=== PATIENT | male | born 1960 | race Caucasian/White ===

== ENCOUNTER 2020-07-24 08:21 | Outpatient (REF) | payer BC, SELFPAY ==
[2020-07-24 09:40] LABS: Alanine Aminotransferase 47 U/L (0-40); Albumin Level 4.7 g/dL (3.5-5.0); Alkaline Phosphatase 103 U/L (39-117); Anion Gap 14 (12-20); Aspartate Amino Transferase 30 U/L (5-37); Bilirubin Total 0.6 mg/dL (0.0-1.0); Blood Urea Nitrogen 19 mg/dL (9-16); Calcium 9.5 mg/dL (8.4-10.2); Carbon Dioxide 28 mmol/L (22-29); Chloride 101 mmol/L (96-108); Estimated Glomerular Filt Rate 58; Glucose Random 112 mg/dL (60-115); Potassium 4.9 mmol/l (3.3-5.1); Sodium 138 mmol/L (135-145); Total Protein 7.4 g/dL (6.5-8.0)
== END 2020-07-24 08:22 | disposition home or self-care (01) ==
LOC: HO.LAB 08:21
PROVIDERS: PCP Physician Assistant; Visit Provider Physician Assistant
DX: I10 Essential (primary) hypertension (principal)
CPT/HCPCS: 36415; 80053

== ENCOUNTER 2020-07-26 09:47 | Outpatient (REF) | payer BC, SELFPAY ==
--- NOTE | 2020-07-26 09:50 | CT_ITS ---
EXAMINATION: CT CHEST WITH CONTRAST CLINICAL INFORMATION: Rule out pulmonary nodule, mass or tumor COMPARISON: None TECHNIQUE: Multidetector volumetric CT imaging of the chest was obtained after the administration of 65 mL of Omnipaque 350 intravenous contrast without immediate adverse reactions. Axial MIP volume rendering provided. Sagittal and coronal reformatted images were obtained. This CT examination was performed using dose optimization techniques as appropriate, variously including the following: *Automated exposure control *Adjustment of mA and/or kV according to patient size (this includes techniques or standardized protocols for targeted exams where dose is matched to indication/reason for exam; i.e. extremities or head) *Use of iterative reconstruction technique DLP: 188 mGy-cm FINDINGS: LUNGS: There is evidence of mild paraseptal emphysema. The lungs are clear. No pulmonary mass or nodule is seen. MEDIASTINUM: The visualized thyroid gland is unremarkable. There are no enlarged hilar or mediastinal lymph nodes. The heart does not appear enlarged. There is mild coronary artery calcification. There is no pericardial effusion. The thoracic aorta is normal in caliber. PLEURA: There is no pleural effusion. No pleural mass or thickening. AXILLA: No lymphadenopathy. UPPER ABDOMEN: There is fatty infiltration of the liver. OSSEOUS STRUCTURES: There are degenerative changes of the spine and shoulder joints. CT/CT chest w con IMPRESSION: Mild paraseptal emphysema. No pulmonary mass or nodule seen. Mild coronary artery calcification. Fatty liver.
[2020-07-26] MEDS: iohexoL 350 MG/ML 100 ML INFUS..BTL 65 ML IV (10:56)
== END 2020-07-26 09:48 | disposition home or self-care (01) ==
LOC: HO.CT 09:47
PROVIDERS: PCP Physician Assistant; Visit Provider Physician Assistant
DX: R91.8 Other nonspecific abnormal finding of lung field (principal)
CPT/HCPCS: 71260; Q9967

== ENCOUNTER 2020-09-16 07:25 | Outpatient (REF) | payer BC, SELFPAY ==
[2020-09-16 08:03] LABS: MANUAL DIFF FLAG NO
[2020-09-16 08:04] LABS: Basophils Absolute Auto 0.1 X10*3/uL (0.0-0.2); Eosinophils Absolute Auto 0.2 X10*3/uL (0.0-0.4); Eosinophils Percent Auto 3.7 % (0-4); Hematocrit 47.5 % (42-52); Hemoglobin 16.3 g/dl (14.0-18.0); Imm Gran Abs Auto 0.01 X10*3/uL (0.00-0.03); Imm Gran Pct Auto 0.2 % (0.0-0.4); Lymphocytes Absolute Auto 1.2 X10*3/uL (1.2-4.9); Lymphocytes Percent Auto 20.2 % (20-40); Mean Corpuscular HGB Conc 34.3 g/dl (31.0-36.0); Mean Corpuscular Hemoglobin 31.1 pg (27.0-33.0); Mean Corpuscular Volume 90.6 fL (80-98); Monocytes Absolute Auto 0.5 X10*3/uL (0.1-1.2); Monocytes Percent Auto 8.5 % (2-11); Neutrophils Percent Auto 66.4 % (45-73); Platelet Count 204 X10*3/uL (160-400); Red Blood Count 5.24 X10*6/uL (4.60-5.80); Red Cell Distribution Width 12.2 % (11.0-16.0)
[2020-09-16 09:23] LABS: Estimated Average Glucose 111 mg/dL; Hemoglobin A1c % 5.5 %
[2020-09-16 09:42] LABS: Alanine Aminotransferase 42 U/L (0-40); Albumin Level 4.5 g/dL (3.5-5.0); Alkaline Phosphatase 97 U/L (39-117); Anion Gap 11 (12-20); Aspartate Amino Transferase 29 U/L (5-37); Bilirubin Total 0.7 mg/dL (0.0-1.0); Blood Urea Nitrogen 22 mg/dL (9-16); Calcium 9.4 mg/dL (8.4-10.2); Carbon Dioxide 27 mmol/L (22-29); Chloride 106 mmol/L (96-108); Estimated Glomerular Filt Rate 53; Glucose Random 116 mg/dL (60-115); Potassium 4.5 mmol/L (3.3-5.1); Sodium 139 mmol/L (135-145); Total Protein 6.9 g/dL (6.5-8.0)
== END 2020-09-16 07:26 | disposition home or self-care (01) ==
LOC: HO.LAB 07:25
PROVIDERS: PCP Internal Medicine; Visit Provider Physician Assistant
DX: R94.4 Abnormal results of kidney function studies (principal); R73.01 Impaired fasting glucose
CPT/HCPCS: 36415; 80053; 83036; 85025

== ENCOUNTER 2021-05-06 09:10 | Outpatient (REF) | payer BC, SELFPAY | END 2021-05-06 09:11 | disposition home or self-care (01) | LOC: HO.LAB 09:10 | PROVIDERS: PCP Internal Medicine; Visit Provider Internal Medicine | DX: Z20.822 Contact with and (suspected) exposure to COVID-19 (principal) | CPT/HCPCS: C9803; U0003; U0005 ==

== ENCOUNTER 2021-05-18 09:51 | Outpatient (REF) | payer BC, SELFPAY | END 2021-05-18 09:52 | disposition home or self-care (01) | LOC: HO.MANLDS 09:51 | PROVIDERS: PCP Physician Assistant; Visit Provider Physician Assistant | DX: Z12.5 Encounter for screening for malignant neoplasm of prostate (principal); N40.0 Benign prostatic hyperplasia without lower urinary tract symptoms | CPT/HCPCS: 36415; 84153 ==

== ENCOUNTER 2022-03-24 15:00 | Outpatient (REF) | payer OTHER, SELFPAY ==
--- NOTE | 2022-03-24 | PFT_ITS ---
INDICATION: Dyspnea. SPIROMETRY: FEV1 to FVC of 68% with an FEV1 of 2.81 L which is 84% predicted and an FVC of 4.16 L, which is 92% predicted. Post bronchodilators, there was an improvement of the FEV1 by 13%. The maximum voluntary ventilation is 65% predicted. LUNG VOLUMES: Total lung capacity 95% predicted. DIFFUSION CAPACITY: DLCO 105% predicted. COMPARISONS: None. INTERPRETATION: There is an obstructive ventilatory defect consistent with mild COPD. There is also a significant response to bronchodilators noted. The patient also has mild to moderate decrease in maximum voluntary ventilation, which could be secondary to deconditioning. Lung volumes are within normal limits except for decrease in the expiratory reserve volume secondary to likely an elevated BMI. Diffusion capacity is within normal limits. Clinical correlation warranted. Misbah Burnett MD MR/MODL / [id number]
== END 2022-03-24 15:01 | disposition home or self-care (01) ==
LOC: HO.RESP 15:00
PROVIDERS: PCP Internal Medicine; Visit Provider Internal Medicine
DX: R06.09 Other forms of dyspnea (principal)
CPT/HCPCS: 94060; 94727; 94729

== ENCOUNTER → 2024-01-28 09:04 | Outpatient (REF) | payer OTHER, SELFPAY ==
--- NOTE | 2024-01-28 12:08 | ECG_ITS ---
Test Reason : NEW ONSET AFIB Blood Pressure : / mmHG Vent. Rate : 086 BPM Atrial Rate : 000 BPM P-R Int : 000 ms QRS Dur : 076 ms QT Int : 352 ms P-R-T Axes : 000 -03 013 degrees QTc Int : 421 ms Atrial fibrillation Abnormal ECG When compared with ECG of 21-JAN-2002 11:41, Atrial fibrillation has replaced Sinus rhythm Referred By: Ana Payne Electronically Signed By:Jules Madden
== END ==
LOC: HO.CARD 09:04
PROVIDERS: PCP Internal Medicine; Visit Provider Internal Medicine
DX: I48.91 Unspecified atrial fibrillation (principal); I25.10 Atherosclerotic heart disease of native coronary artery without angina pectoris
CPT/HCPCS: 93005; 93017

== ENCOUNTER → 2024-01-28 12:08 | Outpatient (BNV) | payer OTHER, SELFPAY | PROVIDERS: PCP Internal Medicine; Visit Provider Internal Medicine Cardiovascular Disease | DX: I48.91 Unspecified atrial fibrillation (principal); R94.31 Abnormal electrocardiogram [ECG] [EKG] | CPT/HCPCS: 93010 ==

== ENCOUNTER → 2024-03-05 08:01 | Outpatient (REF) | payer OTHER, SELFPAY ==
--- NOTE | 2024-03-05 08:04 | CA_ITS ---
Transthoracic Echocardiogram Patient (Last, First, Middle): Alexis Chacon W Gender: Male Date of : 1960 Age: 64 Procedure Date: 03/05/2024 Procedure Type: Transthoracic Echocardiogram Location: OP Height: 175.26 cm Weight: 96.16 kg BSA: 2.12 m2 Heart Rate: bpm BP: 120 / 80 mmHg Drying Can Worker: FERNANDO Referring MD: Jose Gibson MD Symptoms: I48.91 AFIB Study Quality: Fair, contrast ECG Rhythm: Atrial Fibrillation Conclusions: - The left ventricular systolic function is mildly decreased. The visually estimated ejection fraction is between 40-45%. - No obvious valvular pathology seen on this study. Findings Procedure Information Contrast agent, definity, is being given per protocol without apparent complications. Left Ventricle Normal left ventricular cavity size. There is normal left ventricular wall thickness. The left ventricular systolic function is mildly decreased. The visually estimated ejection fraction is between 40-45%. There is mild global hypokinesis. Diastolic function is indeterminate on the basis of available data. Right Ventricle Normal right ventricular cavity size. There is low normal right ventricular systolic function. Atria Both atria are normal in size. Aortic Valve There is a normal trileaflet aortic valve. There is mild thickening of the aortic valve. There is no aortic valve stenosis. There is no aortic valve regurgitation. Mitral Valve The mitral valve appears normal. There is mild mitral valve regurgitation. There is no mitral valve stenosis. Pulmonic Valve The pulmonic valve is likely normal. Tricuspid Valve Normal tricuspid valve structure. There is trace tricuspid valve regurgitation. There is no evidence of pulmonary hypertension. Great Vessels The asc aorta and aortic arch are normal in size. Venous The inferior vena cava is normal in size and collapses greater than 50% with inspiration. Pericardium/Pleural There is no evidence of pericardial effusion. Prior Study Comparison No prior study available for comparison. Recommendations, Care & Conclusions No obvious valvular pathology seen on this study. Measurements 2D Linear Measurements IVSd: 0.85 0.6-0.9/0.6-1.0 cm LVIDd: 3.40 3.9-5.3/4.2-5.9 cm LVIDd Index: 1.60 2.4-3.2/2.2-3.1 cm/m2 LVIDs: 2.84 2.0-3.6 cm LVPWd: 0.86 0.7-1.1 cm LA Diam: 3.80 2.7-3.8/3.0-4.0 cm LAIDs Index: 1.79 1.5-2.3 cm/m2 LV Mass: 97.49 67-162/88-224 g LV Mass Index: 45.98 43-95/49-115 g/m2 LVOT Diam: 2.20 3.0+(-)1.3 cm 2D Systolic Function EF 4C: 39.40 >55% EF 2C: 50.60 >55% EF BiP: 44.80 >55% Aortic Valve AoV Pk Yusef: 0.91 AoV Mn Yusef: 0.58 AoV VTI: 0.16 AoV Pk Grad: 3.00 Aov Mn Grad: 2.00 FRANK Cont.VTI: 3.40 LVOT LVOT Pk Yusef: 0.80 LVOT Mn Yusef: 0.54 LVOT VTI: 0.14 LVOT Pk Grad: 3.00 LVOT Mn Grad: 1.00 LVOT Diam: 2.20 LVOT Area: 3.80 Right Ventricle TAPSE (mm): 18.00 TVS' Yusef: 10.40 Tricuspid Valve TR Pk Yusef: 1.90 TR Pk Grad: 14.00 RA Press: 3.00 RVSP: 17.00 Great Vessels Aorta Sinus of Valsalva: 3.50 2.0-3.5 cm Ao Asc: 3.30 2.1-3.4 cm Ao Arch: 3.10 Updated in Other Vendor System with Status of Final David Harris MD electronically signed on 03/05/2024 12:26:20 PM with status of Final
== END ==
LOC: HO.CARD 08:01
PROVIDERS: PCP Internal Medicine; Visit Provider Internal Medicine
DX: I48.91 Unspecified atrial fibrillation (principal)
CPT/HCPCS: 93306; Q9957

== ENCOUNTER → 2024-03-05 08:04 | Outpatient (BNV) | payer OTHER, SELFPAY | PROVIDERS: PCP Internal Medicine; Visit Provider Internal Medicine | DX: I34.0 Nonrheumatic mitral (valve) insufficiency (principal) | CPT/HCPCS: 93306 ==

== ENCOUNTER → 2024-03-14 07:56 | Outpatient (REF) | payer OTHER, SELFPAY ==
--- NOTE | ~2024-03-14 | NM_ITS ---
Lexiscan Myocardial perfusion study Indication: Coronary artery disease Technique: The patient was brought in for a Lexiscan perfusion study on 03/14/2024 and was injected 0.4 mg of Lexiscan intravenously. Within a minute of this injection 35 mCi of sestamibi was given intravenously. Images were obtained using the SPECT gamma camera interlaced with the gating device. Images were obtained in supine position. Resting perfusion study was performed on 03/17/2024. Patient was administered 35 mCi of sestamibi intravenously at rest. Images were then obtained in supine position. Total DLP 104 mGy-cm. Images were processed with the software and compared side to side in short axis, horizontal long axis and vertical long axis views. Findings: Raw aquisition reviewed. The stress perfusion study showed diminished tracer uptake in the basal to mid part of inferior wall. There is improvement with CT attenuation correction suggestive of diaphragmatic attenuation artifact. The gated study shows normal LV systolic function with calculated LVEF of 52%. LV cavity is normal in size. The gated study shows reduced thickening and contractility in the basal to mid inferior wall. Resting study shows diminished tracer uptake in the basal to mid inferior wall. There is improvement with CT attenuation correction and can indicate diaphragmatic attenuation artifact. Gating at rest reveals diminished contractility in the basal to mid inferior wall with ejection fraction at 72%. The findings are consistent with fixed perfusion defect in the basal to mid inferior wall. Could be related to prior infarct or diaphragmatic attenuation artifact . No evidence of ischemia. NM/NM chapo perf SPECT rest & str Impression: 1. Myocardial perfusion imaging study shows no clear evidence of ischemia. Fixed basal to mid inferior defect which could either be from prior inferior infarct or from diaphragmatic attenuation artifact. 2. Gated LVEF is 52% during stress and 72% during rest. 3. Transient ischemic dilatation not present. EKG component of the test reported separately. Electronically signed by: David Harris MD 03/17/2024 04:34 PM EDT
--- NOTE | 2024-03-14 08:00 | CA_ITS ---
Acquisition Time: 2024-03-14 08:04:30 Total Exercise Time: 00:02:00 Test Indications: Abnormal ECG AFIB Medications: ALBUTEROL ASA ATORVASTATIN ELIQUIS LISINOPRIL METOPROLOL SINGULAIR Protocol: LEXISCAN Max HR: 122 BPM 79% of Pred: 154 BPM Max BP: 122/082 mmHG Max Work Load: 1.0 METS Pharmacogical stress test with Lexiscan injection while sitting, without anginal symptoms, with isolated PVCs, with normotensive response to injection, with reponded lightheadedness - patient put into laying postion, blood pressure taken, and aminophylline given at 2 min recovery, with nondiagnboisiitc EKGs. Aminophylline 75mg IVP given to reverse Lexiscan. Lightheadedness resolved post aminophylline. . Nuclear images pending. Test reviewed with Dr. Madden. Referred By: Deepthi Chance Overread By: Ana Payne
== END ==
LOC: HO.CARD 07:56
PROVIDERS: PCP Internal Medicine; Visit Provider Physician Assistant
DX: I48.91 Unspecified atrial fibrillation (principal)
CPT/HCPCS: 78452; 93017; A9500; J0280; J2785

== ENCOUNTER → 2024-03-14 08:00 | Outpatient (BNV) | payer OTHER, SELFPAY | PROVIDERS: PCP Internal Medicine; Visit Provider Nurse Practitioner | DX: I25.10 Atherosclerotic heart disease of native coronary artery without angina pectoris (principal) | CPT/HCPCS: 78452; 93016; 93018 ==

== ENCOUNTER 2024-05-24 08:04 | Outpatient (REF) | payer OTHER, SELFPAY ==
[2024-05-24 10:02] LABS: Alanine Aminotransferase 87 U/L (0-40); Albumin Level 4.1 g/dL (3.5-5.0); Alkaline Phosphatase 88 U/L (39-117); Anion Gap 11 (12-20); Aspartate Amino Transferase 48 U/L (5-37); Bilirubin Total 0.8 mg/dL (0.0-1.0); Blood Urea Nitrogen 16 mg/dL (9-16); Calcium 9.3 mg/dL (8.4-10.2); Carbon Dioxide 27 mmol/L (22-29); Chloride 106 mmol/L (96-108); Estimated Glomerular Filt Rate > 60; Glucose Random 118 mg/dL (60-115); Sodium 140 mmol/L (135-145); Total Protein 6.8 g/dL (6.5-8.0)
[2024-05-24 10:23] LABS: Thyroid Stimulating Hormone 2.05 uIU/mL (0.32-4.0)
== END 2024-05-24 08:05 | disposition home or self-care (01) ==
LOC: HO.LAB 08:04
PROVIDERS: PCP Internal Medicine; Visit Provider Internal Medicine
DX: R53.83 Other fatigue (principal)
CPT/HCPCS: 36415; 80053; 84443

== ENCOUNTER 2024-05-27 14:56 | Outpatient (REF) | payer OTHER, SELFPAY ==
--- NOTE | ~2024-05-27 | XR_ITS ---
EXAMINATION: XR CHEST CLINICAL INFORMATION: cough COMPARISON: CT chest from 07/26/2020 TECHNIQUE: 2 views of the chest were obtained. FINDINGS: No significant abnormality is noted involving the heart, lungs, mediastinum, bony thorax or soft tissues. XR/XR chest 2V IMPRESSION: Unremarkable examination. Electronically signed by: Nithin Coffey MD 05/27/2024 07:56 PM EST
== END 2024-05-27 14:57 | disposition home or self-care (01) ==
LOC: HO.XRAY 14:56
PROVIDERS: PCP Internal Medicine; Visit Provider Internal Medicine
DX: R05.9 Cough, unspecified (principal)
CPT/HCPCS: 71046

== ENCOUNTER 2025-06-15 16:17 | Outpatient (REF) | payer MEDICARE, SELFPAY ==
[2025-06-15 19:25] LABS: Thyroid Stimulating Hormone 2.19 uIU/mL (0.32-4.0)
[2025-06-15 19:43] LABS: Folate 6.9 ng/mL (> or = 4.0); Vitamin B12 1070 pg/mL (200-900)
--- OUTSIDE RECORDS SUMMARY | 2025-06-15 22:32 | XMS_ITS | Encounter Summary ---
Author Organization [facility] Address [address] [place] [address] Phone Care Team Providers Care Engineer First Assistant Name Role Phone Jose Gibson Primary Care Provider [phone] Encounter Details Date Type Department Care Team (Late st Contact Info) Description 07/31/2022 Procedure Pass [facility] Endoscopy Admitting Dept Virtual Department [address] [place] [address] Social History Tobacco Use Types Packs/Day Years Used Date Smoking Tobacco: Former Cigarettes Q uit: 2006 Smokeless Tobacco: Never Alcohol Use Standard Drinks/Week Comments Yes 4 (1 standard drink = 0.6 oz pur e alcohol) Intimate Partner Violence Answer Date R ecorded Are you denied basic needs s uch as food, clothing, or medical care? No 07/31/2022 In the past 12 months have y ou been in a relationship with a person who hurts, threatens, or tries to control you? No 07/31/2022 Are you denied basic needs s uch as food, clothing, or medical care? No 07/31/2022 In the past 12 months have y ou been in a relationship with a person who hurts, threatens, or tries to control you? No 07/31/2022 Sex and Gender Information Value Date Recorded Sex Assigned at Male 09/17/2020 10:46 PM EDT Legal Sex Male 9:51 PM EDT Gender Identity Male 09/17/2020 10:46 PM EDT Sexual Orientation Straight 09/17/2020 10 :46 PM EDT documented as of this encounter Plan of Treatment Not on file documented as of this encounter Visit Diagnoses Not on filedocumented in this encounter Care Teams Engineer First Assistant Relationship Specialty Start Date End Date Jose Gibson DO [email or web address] PCP - General Internal Medicine 05/21/17 documented as of this encounter Additional Source Comments The information contained in this document represents components of the legal health record. It is not the complete legal health record.[facility]
--- OUTSIDE RECORDS SUMMARY | 2025-06-15 22:32 | XMS_ITS | Encounter Summary ---
Author Organization [facility] Address [address] [place] [address] Phone Care Team Providers Care Restaurant Lead Name Role Phone Jose Gibson Primary Care Provider [phone] Encounter Details Date Type Department Care Team (Late st Contact Info) Description 09/05/2024 Procedure Pass [facility], Ct Scan - [facility] [address] [place] [address] Social History Tobacco Use Types Packs/Day Years Used Date Smoking Tobacco: Former Cigarettes 1.5 20 1 975 - 2007 Smokeless Tobacco: Never Comments:Quit cigarettes 199 5, then quit cigars 2006 Alcohol Use Standard Drinks/Week Comments Yes 4 (1 standard drink = 0.6 oz pur e alcohol) Education Answer Date Recorded Are you interested in more education? Not on kang e 10/27/2022 Are you concerned about learning? Not on file 10/27/2022 No 10/27/2022 No 10/27/2022 Digital Access Answer Date Recorded No 11/27/2022 No 11/27/2022 Reliable internet access at home? Not on file 11/27/2022 Device with a working camera? Not on file Intimate Partner Violence Answer Date R ecorded [...] on filedocumented in this encounter Care Teams Restaurant Lead Relationship Specialty Start Date End Date Jose Gibson DO [email or web address] PCP - General Internal Medicine 05/21/17 documented as of this encounter Additional Source Comments The information contained in this document represents components of the legal health record. It is not the complete legal health record.[facility]
--- OUTSIDE RECORDS SUMMARY | 2025-06-15 22:32 | XMS_ITS | Encounter Summary ---
Author Organization [facility] Address [address] [place] [phone] Phone Care Team Providers Care Sporting Goods Sales Associate Name Role Phone Jose Gibson Primary Care Provider [phone] JayeJose jules Unavailable Encounter Details Date Type Department Care Team (Late st Contact Info) Description 08/13/2017 Ancillary Orders [facility], X-Ray - [address] [address] Miracle Newman, PADMINI Linares. Dante. [address] [place] [address] [email or web address] Cough Social History Tobacco Use Types Packs/Day Years Used Date Smoking Tobacco: Never Smokeless Tobacco: Never Alcohol Use Standard Drinks/Week Comments Yes 4 (1 standard drink = 0.6 oz pur e alcohol) Sex and Gender Information Value Date Recorded Sex Assigned at Male 09/17/2020 10:46 PM EDT Legal Sex Male 9:51 PM EDT Gender Identity Male 09/17/2020 10:46 PM EDT Sexual Orientation Straight 09/17/2020 10 :46 PM EDT documented as of this encounter Plan of Treatment Not on file documented as of this encounter Results * XR CHEST PA AND LATERAL 2 VIEWS (08/13/2017 4:32 PM EST) Anatomical Region Laterality Modality Chest Radiographic Nasima ging 08/13/2017 4:37 PM EST Impressions 08/13/2017 4:38 PM EST No evidence of an acute chest process. POS - [id number] Narrative 08/13/2017 4:38 PM EST HISTORY: See above. COMPARISON: None FINDINGS: PA and lateral views of the chest are performed. Minor linear atelectasis or scarring in the lingula. No focal infiltrate, pleural effusion, or evidence of pulmonary edema. Heart and mediastinal contours are within normal limits. Aorta is mildly tortuous. No prominent compression deformities. Procedure Note Krystle Fatima MD - 08/13/2017 HISTORY: See above. COMPARISON: None FINDINGS: PA and lateral views of the chest are performed. Minor linear atelectasisor scarring in the lingula. No focal infiltrate, pleural effusion, orevidence of pulmonary edema. Heart and mediastinal contours are withinnormal limits. Aorta is mildly tortuous. No prominent compressiondeformities. IMPRESSION: No evidence of an acute chest process. POS - [id number] September Paty [facility] XR CHEST Final Result documented in this encounter Visit Diagnoses Diagnosis Cough Cough documented in this encounter Care Teams Sporting Goods Sales Associate Relationship Specialty Start Date End Date Jose Gibson DO PCP - General Internal Medicine 05/21/17 Jose Gibson DO [address] [place] [address] Insurance Assigned Provider 07/10/20 10/08/21 documented as of this encounter Additional Source Comments The information contained in this document represents components of the legal health record. It is not the complete legal health record.[facility]
--- OUTSIDE RECORDS SUMMARY | 2025-06-15 22:32 | XMS_ITS | Encounter Summary ---
Author Organization [facility] Address [address] [place] [phone] Phone Care Team Providers Care Internet Researcher Name Role Phone Jose Gibson DO Primary Care Provider [phone] Jose Gibson DO Unavailable Encounter Details Date Type Department Care Team (Late st Contact Info) Description 05/28/2017 Procedure Pass [facility] Endoscopy Admitting Dept Virtual Department [address] [place] [phone] Social History Tobacco Use Types Packs/Day Years [...] on filedocumented in this encounter Care Teams Internet Researcher Relationship Specialty Start Date End Date Jose Gibson DO PCP - General Internal Medicine 05/21/17 Jose Gibson DO [address] [place] [id number] [email or web address] Insurance Assigned Provider 07/10/20 10/08/21 documented as of this encounter Additional Source Comments The information contained in this document represents components of the legal health record. It is not the complete legal health record.[facility]
--- OUTSIDE RECORDS SUMMARY | 2025-06-15 22:32 | XMS_ITS | Clinical Summary ---
Author Organization [facility] Address [address] [place] [address] Phone Care Team Providers Care Nurse Informaticist Name Role Phone Marli Carranza Primary Care Provider [phone] Allergies Active Allergy Reactions Criticality Noted Date Comments Pollens Extract Other (See Comments) 05/16/2017 Congestion Medications aspirin 81 MG EC tablet Take 81 mg by mouth daily. Active montelukast (SINGULAIR) 10 mg tablet Take 10 mg by mouth nightly at bedtime. Active b complex vitamins capsule Take 1 capsule by mouth daily. Active albuterol 90 mcg/actuation inhaler Inhale 2 puffs into the lungs every 6 (six) hours as needed for wheezing. Active ipratropium (ATROVENT) 42 mcg (0.06 %) nasal spray 2 sprays by Nasal route 3 (three) times a day. 15 mL 12 5 Active Additional Information Patient not taking.Reported on 11/20/2024 atorvastatin (LIPITOR) 40 MG tablet Take 40 mg by mouth daily. Active rivaroxaban (XARELTO) 20 mg Tab Take 20 mg by mouth daily with dinner. Active dilTIAZem (CARDIZEM LA) 180 mg 24 hr tablet Take 180 mg by mouth daily. Active eucalyptus-pepp ermint oil (PONARIS) Soln 2 drops each nostril twice daily Active Active Problems Problem Noted Date Diagnosed Date Chronic cough 09/06/2024 Assessment & Plan (11/20/2024 3:07 PM EDT): Remarkably cough has resolved with change of medication of metoprolol and now on diltiazem. This despite bronchitic changes noted on chest CT. His lungs are clear no longer expectorating. If you develop recurrent symptoms, would suggest repeat PFTs. Otherwise at this time, no intervention or further testing required. Assessment & Plan (09/06/2024 2:00 PM EST): Over 6 months of chronic productive cough of purulent sputum with minimal additional symptoms. No clear improvement with prior antibiotics, even levofloxacin. Chest x-ray unremarkable though coronary CT in December may have predated his symptoms but did not include much of the lung windows. Presentation is most suggestive of lower airway cough syndrome, likely chronic bronchitis, bronchiectasis, or bronchiolitis. Concurrent upper airway source cannot be excluded. PLAN: Submit p.m. sputum sample for culture to rule out resistant bacteria. Obtain noncontrast chest CT to evaluate for possible bronchiectasis given negative chest x-ray Obtaine sinus CT as well to ensure no evidence of upper airway drainage contributing. Pending results, determine whether additional antibiotics are warranted versus consideration for airway evaluation with bronchoscopy. If the latter recommended, will contact patient to try to arrange prior to next scheduled follow-up visit. Chronic atrophic rhinitis 09/06/2024 Assessment & Plan (11/20/2024 3:07 PM EDT): Trial of multiple nasal steroids as well as ipratropium bromide and Azelastine have not improved his chronic rhinitis symptoms. On exam, features are very consistent with atrophic rhinitis, possibly related to his prior sinus surgery. I have recommended he start trial of Ponaris nasal drops twice daily. If ineffective, can try Xlear or nasal gel as alternatives. Assessment & Plan (09/06/2024 2:01 PM EST): Patient describes frequent post eating vasomotor rhinitis, AKA gustatory rhinitis. Recommend trial of as needed or scheduled ipratropium nasal spray. Immunizations Immunization Administration Dates Next Due COVID-19 (Pre-04/23) Pfizer Vaccine, mRNA, PF ,09/23/2020 Family History Medical History Relation Comments COPD Mother Relation Status Comments Mother Social History Tobacco Use Types Packs/Day Years Used Date Smoking Tobacco: Former Cigarettes 1.5 20 1 975 - 2006 Smokeless Tobacco: Never Tobacco Cessation:Counseling Given: Not Answered Comments:Quit cigarettes 1994, then quit cigars 2006 Alcohol Use Standard [...] Orientation Straight 09/17/2020 10 :46 PM EDT Last Filed Vital Signs Vital Sign Reading Time Taken Comments Blood Pressure 142/86 11/20/2024 2:34 PM EDT Pulse 93 11/20/2024 2:34 PM EDT Temperature 36.3 C (97.4 F) 11/20/2024 2:34 PM EDT Respiratory Rate 14 07/31/2022 8:24 AM EST Oxygen Saturation 97% 11/20/2024 2:34 PM EDT Inhaled Oxygen Concentration - - Weight 104.9 kg (231 lb 3.2 oz) 11/20/2024 2:34 PM EDT Height 175.3 cm (5' 9.02 ) 07/31/2022 7:10 AM ES T Body Mass Index 34.13 07/31/2022 7:10 AM EST Plan of Treatment Health Maintenance Due Date Last Done Comments Adult Td,Tdap Booster 1960 DEPRESSION SCREENING 1970 COLOGUARD 2003 FIT TEST 2003 FOBT 2003 SIGMOIDOSCOPY 2003 VIRTUAL COLONOSCOPY 2003 PNEUMOCOCCAL VACCINES (50+ years) (1 of 1 - PCV) 02/26/2008 ZOSTER VACCINES (1 of 2) 02/26/2008 CREATININE LEVEL 01/04/2020 01/03/2019 ABDOMINAL AORTIC ANEURYSM (AAA) SCREENING 2023 SCREENING FOR DIABETES 09/17/2023 09/16/2020, 2018 LIPID PANEL 01/04/2024 01/03/2019 INFLUENZA VACCINE (#1) 2025 , 04/05/2019, 05/11/2018, Additional history exists COVID-19 VACCINE ( season) 2025 04/26/2021, 10/16/2020, 09/23/2020 COLONOSCOPY 07/31/2032 07/31/2022, 05/28/2017 COLORECTAL CANCER SCREENING 07/31/2032 RSV VACCINE (1 - 1-dose 75+ series) 2033 HEPATITIS C SCREENING Completed 01/03/2019 SMOKING STATUS SCREENING (Once After 26 Yrs) Completed 11/20/2024 HEPATITIS A VACCINES Aged Out No long er eligible based on patient's age to complete this topic HIB VACCINES Aged Out No longer eligi ble based on patient's age to complete this topic MENINGOCOCCAL VACCINES (ACWY) Aged Out No longer eligible based on patient's age to complete this topic MENINGOCOCCAL VACCINES (B) Aged Out N o longer eligible based on patient's age to complete this topic Medical Devices Not on file Procedures Procedure Name Priority Date/Time Associated Diagnosis Comments ENDOSCOPY, COLON 07/31/2022 7:42 AM EST LIPID PANEL Routine 01/03/2019 7:42 AM EDT Hyperlipidemia, unspecified hyperlipidemia type HEPATITIS C ANTIBODY, QUALITATIVE Routine 01/03/2019 7:42 AM EDT Hyperlipidemia, unspecified hyperlipidemia type COMPREHENSIVE METABOLIC PANEL (CMP) Routine 01/03/2019 7:42 AM EDT Hyperlipidemia, unspecified hyperlipidemia type from Last 3 Months or Most Recently Relevant to Health Maintenance Results * ENDOSCOPY, COLON (07/31/2022 7:42 AM EST) Narrative Transcriptions Chuckie Curry MD - 07/31/2022 7:42 AM EST [facility] Patient Name: Alexis Guerradianelys Attending MD:: CHUCKIE CURRY MD Procedure Date: 07/31/2022 7:42 AM Date of : 1960 Age: 62 Admit Type: Outpatient Gender: Male Room: [place] [address] Referring MD: MARLI CARRANZA DO Exam Type: Colonoscopy Indications: Surveillance: Personal history of adenomatouspolyps on last colonoscopy > 5 years ago, Lastcolonoscopy: May 2017 Medications: Monitored Anesthesia Care Procedure: Informed consent was obtained from the patientafter discussion of the indications, limitations, alternatives, benefits, and risks of the procedure. Risks specifically discussed include but are not limited to medication reactions, missed lesions, bleeding, perforation, or the need for emergent surgery. Throughout the procedure, the patient's blood pressure, pulse, end-tidal CO2, and oxygensaturations were monitored continuously. The Olympus adult variable colonoscope CF-FC105E #5 was introduced through the anus and advanced to the terminal ileum, with identification of theappendiceal orifice and IC valve. The colonoscopy was performed without difficulty. The patient tolerated the procedure fairly well. The quality of the bowel preparation was good. The terminal ileum, ileocecal valve, appendiceal orifice, and rectum were photographed. Complications: No immediate complications. Estimated blood loss: Minimal. Findings: The perianal and digital rectal examinations were normal. Pertinent negatives include normalsphincter tone. A 5 mm polyp was found at 70 cm proximal to theanus. The polyp was sessile. The polyp was removed with a cold snare. Resection and retrieval were complete. Estimated blood loss was minimal. A 10 mm polyp was found in the proximal ascending colon. The polyp was flat. The polyp was removedwith a cold snare. Resection and retrieval werecomplete. Estimated blood loss was minimal. A 6 mm polyp was found at 80 cm proximal to theanus. The polyp was sessile. The polyp was removed with a cold snare. Resection and retrieval were complete. Estimated blood loss was minimal. Retroflexion in the right colon was performed. The exam was otherwise without abnormality ondirect and retroflexion views. Impression: - One 5 mm polyp at 70 cm proximal to the anus, removed with a cold snare. Resected andretrieved. - One 10 mm polyp in the proximal ascending colon, removed with a cold snare. Resected andretrieved. - One 6 mm polyp at 80 cm proximal to the anus, removed with a cold snare. Resected andretrieved. - The examination was otherwise normal on directand retroflexion views. Recommendation: - I will send results of your biopsy to you andyour referring physician or provider. If you do notreceive notification within 3 weeks, please call ouroffice. - Repeat colonoscopy in 3 - 5 years forsurveillance of multiple polyps. CHUCKIE CURRY MD 07/31/2022 8:04:53 AM This report has been signed electronically. Number of Addenda: 0 Note Initiated On: 07/31/2022 7:42 AM Procedure Code(s): --- Professional --- 09363, Colonoscopy, flexible; with removal of tumor(s), polyp(s), or other lesion(s) by snare technique --- Technical --- 92145, Colonoscopy, flexible; with removal of tumor(s), polyp(s), or other lesion(s) by snare technique Diagnosis Code(s): --- Professional --- Z86.010, Personal history of colonic polyps K63.5, Polyp of colon --- Technical --- Z86.010, Personal history of colonic polyps K63.5, Polyp of colon CPT copyright 2020 [employer]. All rights reserved. The codes documented in this report are preliminary and upon tax audit manager reviewmay be revised to meet current compliance requirements. Procedure Date: 07/31/2022 7:42:[address] [place] [id number] [place] Marli A Jayeda DO GI PROCEDURE ORDERABLES Final Re sult * (ABNORMAL) Comprehensive metabolic panel (01/03/2019 7:42 AM EDT) SODIUM 142 133 - 146 mmol/L [facility] POTASSIUM 4.7 3.3 - 5.1 mmol/L [facility] CHLORIDE 100 96 - 108 mmol/L [facility] CO2 27 21 - 35 mmol/L [facility] BUN 23(H) 6 - 19 mg/dL [facility] CREATININE 1.40 0.5 - 1.5 mg/dL [facility] GLUCOSE 99 70 - 99 mg/dL [facility] ALBUMIN 4.4 3.9 - 4.8 g/dL [facility] TOTAL PROTEIN 7.1 6.5 - 8.0 g/dL [facility] CALCIUM 9.3 8.4 - 10.3 mg/dL [facility] ALKALINE PHOSPHATASE 119(H) 39 - 117 U/L [facility] TOTAL BILIRUBIN 0.6 0.0 - 1.2 mg/dL [facility] AST 30 0 - 37 U/L [facility] ALT 36 0 - 40 U/L [facility] GLOBULIN 2.7 1 - 4.8 g/dL [facility] EGFR 54(L) >59 mL/min/1.7 3m2 [facility] Comment:If patient is black, multiply result by 1.159. Estimated glomerular filtration rate calculated using the CKD-EPI equation. ANION GAP 20 10 - 20 mmol/L [facility] Blood 01/03/2019 7:42 AM EDT 01/03/2019 7:49 AM EDT [facility]- LAB BLOOD BKR ORDERABLES Fin al Result Performing Organization Address City/[facility]/ZIP Co de Phone Number [address] [address] * Hepatitis C antibody, qualitative (01/03/2019 7:42 AM EDT) HCV Negative Negative [facility] Comment: This is a screening test and should be confirmed with molecular testing Blood 01/03/2019 7:42 AM EDT 01/03/2019 7:49 AM EDT [facility] LAB BLOOD BKR ORDERABLES Fin al Result Performing Organization Address [facility] Co de Phone Number [address] [address] * Lipid panel (01/03/2019 7:42 AM EDT) HDL 33 mg/dL [facility] Comment: Interpretation <40 mg/dL: Low HDL cholesterol (major risk factor for CHD) Greater than or equal to 60 mg/dL: High HDL cholesterol ( negative risk factor for CHD) HDL - cholesterol is affected by a number of factors, e.g. smoking, excerise, hormones, sex and age. CHOLESTEROL 154 0 - 240 mg/dL [facility] TRIGLYCERIDES 102 30 - 160 mg/dL [facility] LDL 101 50 - 129 mg/dL [facility] Comment: LDL levels in terms of risk for coronary heart disease: <100 mg/dL: Optimal 100-129 mg/dL: Near or above optimal 130-159 mg/dL: Borderline high 160-189 mg/dL: High >190 mg/dL: Very High CARDIAC RISK RATIO 4.7 3.4 - 5.0 [facility] Blood 01/03/2019 7:42 AM EDT 01/03/2019 7:49 AM EDT September Pat[facility] [place] LAB BLOOD BKR ORDERABLES [place] al Result [address] [address] from Last 3 Months or Most Recently Relevant to Health Maintenance [place] [id number] [employer] MEDEX SUPPLEMENT MEDICARE PART A & B [employer] MEDEX SUPPLEMENT MEDICARE PART A & B Member Subscriber Plan / Payer ( fective 2024-) Name:Alexis Chacon Member ID:[id number] Relation to Subscriber:Self Name:Alexis Chacon Subscriber ID:[id number] Payer ID:[id number] Group ID:Not on file Type:Medicare Address: [facility] [employer] [facility] [employer] [facility] [address] [place] [phone] [employer] MEDEX SUPPLEMENT MEDICARE PART A & B [employer] MEDEX SUPPLEMENT MEDICARE PART A & B [employer] MEDEX SUPPLEMENT MEDICARE PART A & B [employer] MEDEX SUPPLEMENT Care Teams Nurse Informaticist Relationship Specialty Start Date End Date Marli Carranza DO [phone] (work) [email or web address] PCP - General Internal Medicine 05/21/17 Additional Source Comments The information contained in this document represents components of the legal health record. It is not the complete legal health record.[facility]
--- OUTSIDE RECORDS SUMMARY | 2025-06-15 22:32 | XMS_ITS | Encounter Summary ---
Author Organization [facility] Address [address] [place] [address] Phone Care Team Providers Care Greeting Card Maker Name Role Phone Jose Gibson Primary Care Provider [phone] Encounter Details Date Type Department Care Team (Late st Contact Info) Description 09/05/2024 Procedure Pass [facility], Ct Scan - [facility] [address] [place] [address] Social History Tobacco Use Types Packs/Day Years [...] on filedocumented in this encounter Care Teams Greeting Card Maker Relationship Specialty Start Date End Date Jose Gibson DO [email or web address] PCP - General Internal Medicine 05/21/17 documented as of this encounter Additional Source Comments The information contained in this document represents components of the legal health record. It is not the complete legal health record.[facility]
--- OUTSIDE RECORDS SUMMARY | 2025-06-15 22:32 | XMS_ITS | Continuity of Care Document ---
Author Organization [facility], [facility] Address [address] [place] [address] Assessment Encounter Date Assessment Date Assessment LastModified by Organization Details LastModified Time 06/15/2025 06/15/2025 Patient presente d to office today for their Medicare Annual Wellness Visit. Education was provided on healthy nutrition, including a diet rich in fruits and vegetables, minimizing simple carbohydrates, salt, and saturated fats. Encouraged regular cardiovascular exercise such as walking at least 30 minutes daily, 5 times per week. Emphasized preventive health measures and educated pt on fall prevention and community-based lifestyle interventions to help reduce health risks and promote healthy living. [email or web address] Not available 06/01/2025 13:55:39 Plan of Treatment Reminders Order Date Submit Date Provider Last Modified By Organization Details Last Modified Time Details Appointments MEDICARE ANNUAL WELLNESS 2024 03:30P M DR CARRANZA Not available Not available Not available Lab TSH, serum or plasma 2024 025 [facility], [address] [place] [address], [place], [address], 06/15/2025 16:10:28 ESR (erythroc yte sedimenta tion rate), blood 2024 025 [facility], [address] [place] [address], [place], [address], 06/15/2025 16:10:29 vitamin B12 + folate, serum or blood 2024 025 [facility], [address] [place] [address], [place], [address], 06/15/2025 16:10:29 hemoglobi n, gastroint estinal, stool 2024 025 [facility], [address] [place] [address], [address], 06/15/2025 16:10:[address] referral - pending lab will be forwarded 2024 025 [email or web address] Baljinder Rehman MD, [address] [place] [address], [id number], 06/15/2025 16:26:51 Procedures None recorded. Surgeries None recorded. Imaging None recorded. Medication Orders None recorded. Patient TargetsNo targets recorded. Patient Instructions Encounter Date Encounter Id Patient Instructions Last Modified By Organization Details Last Modified Time 06/15/2025 [id number] pulse oximetry* Not available 06/15/2025 16:06:14 advance care planning: care instructions Not available 06/15/2025 16:06:14 Discussed and explained advance directives such as standard forms to the patient. Face to face discussion lasted for a duration of _35__ minutes. Not available 06/15/2025 16:06:25 Reason for Referral Neurologist Referral for Poo r short-term memory pending lab will be forwarded Referring Physician: Jose Carranza, Internal Medicine, Encounter Date: 06/15/2025 Results Created Date Observation Date Name Description Value Unit Range Abnormal Flag Note LastModifiedBy Organization Detail LastModifiedTime 06/15/2006/15/2025 pulse oxime try* Result 96 Not Available [facility] [address] [facility] [address], [place], [address], 06/01/2025 13:58:15 Result Notes None recorded. Problems Name Problem SNOMED Code Status Onset Date Resolution Date Notes Provider Name and Address Organization Details Recorded Time Tachycardi a 4667524 Active 2017 Not Available [facility] 09/28/202 3 13:33:26 Hypertensi ve disorder 06477287 Active 2017 Not Available [facility] 3 13:33:26 Impaired fasting glycemia 567681496 Active 2017 Not Available [facility] 3 13:33:26 Obstructiv e sleep apnea syndrome 13305079 Active 2017 TRU COLEMAN [address] [place], [address], [facility] 5 16:32:08 Hyperlipid emia 19419868 Active 2017 Not Available [facility] 3 13:33:26 Herpes simplex 65010611 Active 2018 HVS2 Not Available [facility] 3 13:33:26 Chronic obstructiv e pulmonary disease 86098345 Active 2019 Not Available [facility] 3 13:33:26 COVID-19 437356704 Active 2021 Not Available [facility] 3 13:33:26 Acute bronchitis 21573449 Active 2021 Not Available [facility] 3 13:33:25 Dyspnea on exertion 02790206 Active 2021 Not Available [facility] 3 13:33:26 Acute urinary tract infection 509275692 Active 2021 Not Available [facility] 3 13:33:26 Constipati on 48523101 Active 2021 Not Available [facility] 3 13:33:26 Cough 70528801 Active 2021 Not Available [facility] 3 13:33:26 Asthma 082567235 Active 2021 Not Available [facility] 3 13:33:26 Acute sinusitis 00849250 Active 2021 Not Available [facility] 3 13:33:26 Calcific coronary arterioscl erosis 34489619 Active 2023 Jose Carranza DO [address] [place], [address], [facility] 4 02:13:46 Atrial fibrillati on 44373970 Active 2023 TUR COLEMAN [address] [place], [address], [facility] 4 11:05:12 Fatigue 30759460 Active 2023 Jose Carranza, DO [address] [place], [address], [facility] 4 16:29:08 Chronic cough 17642394 Active 2023 Jose Carranza, DO [address] [place] [address], [address], [facility] 4 09:19:03 Aspiration pneumonia 003192855 Active 2024 Jose Carranza DO [address] [place] [address], [address], [facility] 5 16:37:20 Poor short-term memory 930354915 Active 2024 Jose Carranza, DO [address] [place] [address], [address], [facility] 5 16:03:49 Problem Notes None recorded. Procedures Surgical History Date Name Laterality Status Provider Name and Address Organization Details Recorded Time 7 Colonoscopy completed Katie Ramos [facility] 01/08/2019 08:13:25 Imaging Results None recorded. Procedure Notes None recorded. Medical Equipment None Reported. Allergies No known drug allergies Medications Name Sig Start Date Stop Date Status Note LastModified by Organization Details LastModified Time atorvasta tin 40 mg tablet TAKE 1 TABLET BY MOUTH EVERY DAY FOR 30 DAYS active Not Available Not Available No t Available atorvasta tin 80 mg tablet Take 1 tablet every day by oral route for 90 days. 08/06 completed Not Available Not Available Not Available prednison e 10 mg tablet TAKE 4 TABS DAILY X 2 DAYS, THEN 3 TABS X 1 DAY, THEN 2 TABS X1 DAY, THEN 1 TAB X1 DAY THEN STOP 02/09 completed Not Available Not Available Not Available doxycycli ne hyclate 100 mg capsule TAKE 1 CAPSULE BY MOUTH TWICE A DAY FOR 7 DAYS 09/14 completed Not Available Not Available Not Available azithromy essie 250 mg tablet TAKE 2 TABLETS BY MOUTH TODAY, THEN TAKE 1 TABLET DAILY FOR 4 DAYS DIRECTED 02/09 completed Not Available Not Available Not Available benzonata te 200 mg capsule TAKE 1 CAPSULE BY MOUTH THREE TIMES A DAY FOR 2 WEEKS 02/09 completed Not Available Not Available Not Available metoprolo l succinate ER 50 mg tablet,ex tended release 24 hr TAKE 1 TABLET BY MOUTH EVERY DAY FOR 30 DAYS 08/25 completed Not Available Not Available Not Available lisinopri l 20 mg tablet TAKE 1 TABLET BY MOUTH EVERY DAY active Not Available Not Available No t Available prednison e 20 mg tablet Take 1 tablet every day by oral route. 08/06 completed Not Available Not Available Not Available moxifloxa essie 400 mg tablet TAKE 1 TABLET BY MOUTH EVERY DAY FOR 10 DAYS 02/09 completed Not Available Not Available Not Available amlodipin e 5 mg tablet TAKE 1 TABLET BY MOUTH EVERY DAY FOR 30 DAYS 02/09 completed Not Available Not Available Not Available ciproflox acin 500 mg tablet TAKE 1 TABLET BY MOUTH EVERY 12 HOURS FOR 7 DAYS 03/31 completed Not Available Not Available Not Available triamcino lone acetonide 0.1 % topical cream APPLY THIN COAT TO AFFECTED AREA TWICE A DAY 03/31 completed Not Available Not Available Not Available simvastat in 40 mg tablet TAKE 1 TABLET BY MOUTH EVERY DAY 01/10 completed Not Available Not Available Not Available benzonata te 100 mg capsule TAKE 1 CAPSULE BY MOUTH THREE TIMES A DAY NEEDED FOR COUGH 04/05 completed Not Available Not Available Not Available Tobrex 0.3 % eye ointment APPLY A SMALL AMOUNT (1/2 INCH) TO THE LOWER LID OF THE AFFECTED EYE(S) BY OPHTHALM IC ROUTE 2 TIMES PER DAY 05/18 completed Not Available Not Available Not Available lisinopri l 30 mg tablet TAKE 1 TABLET BY MOUTH EVERY DAY 01/15 completed Not Available Not Available Not Available monteluka st 10 mg tablet TAKE 1 TABLET BY MOUTH EVERY DAY active Not Available Not Available No t Available codeine 10 mg-guaife nesin 100 mg/5 mL oral liquid TAKE 10 ML BY MOUTH EVERY 4 HOURS 03/31 completed Not Available Not Available Not Available metoprolo l succinate ER 25 mg tablet,ex tended release 24 hr TAKE 1 TABLET BY MOUTH EVERY DAY 08/06 completed Not Available Not Available Not Available levofloxa essie 500 mg tablet TAKE 1 TABLET BY MOUTH EVERY 24 HOURS FOR 7 DAYS 08/06 completed Not Available Not Available Not Available methylpre dnisolone 4 mg tablets in a dose pack TAKE 6 TABLETS ON DAY 1 DIRECTED ON PACKAGE AND DECREASE BY 1 TAB EACH DAY FOR A TOTAL OF 6 DAYS 08/06 completed Not Available Not Available Not Available albuterol sulfate HFA 90 mcg/actua tion aerosol inhaler TAKE 2 PUFFS INHALATI ON EVERY 4 HOURS NEEDED FOR WHEEZING , SHORTNES S OF BREATH OR COUGH active Not Available Not Available No t Available ipratropi um bromide 42 mcg (0.06 %) nasal spray USE 2 SPRAYS BY NASAL ROUTE 3 (THREE) TIMES A DAY 02/09 completed Not Available Not Available Not Available fluticaso ne propionat e 50 mcg/actua tion nasal spray,farrukh pension USE 2 SPRAYS IN EACH NOSTRIL ONCE A DAY 02/09 completed Not Available Not Available Not Available loratadin e 10 mg tablet TAKE 1 TABLET (ORAL) 1 TIME PER DAY FOR ALLERGY SYMPTOMS OR ITCHING 12/02 completed Not Available Not Available Not Available amoxicill in 875 mg-potass ium clavulana te 125 mg tablet TAKE 1 TABLET BY MOUTH EVERY 12 HOURS FOR 10 DAYS 07/13 completed Not Available Not Available Not Available ezetimibe 10 mg tablet TAKE 1 TABLET BY MOUTH EVERY DAY active Not Available Not Available No t Available diltiazem ER 180 mg tablet,ex tended release 24 hr TAKE 1 TABLET BY MOUTH EVERY DAY 06/15 completed Insuranc e will only cover capsule Not Available Not Available Not Available DILT-XR 180 mg capsule, extended release TAKE 1 CAPSULE BY MOUTH EVERY DAY active Not Available Not Available No t Available biotin qd 06/15 completed Not Available Not Available Not Available Aspir-81 Take one tablet once a day active Not Available Not Available No t Available Advil Take 2 tablets prn 01/08 completed Not Available Not Available Not Available Xyzal 5 mg tablet Take 1 tablet every day by oral route. 05/18 completed Not Available Not Available Not Available GaviLyte- G 236 gram-22.7 4 gram-6.74 gram-5.86 gram oral solution 11/27 completed Not Available Not Available Not Available Xarelto 20 mg tablet TAKE 1 TABLET BY MOUTH EVERY DAY WITH SUPPER active Not Available Not Available No t Available Eliquis 5 mg tablet TAKE 1 TABLET BY MOUTH TWICE A DAY 06/15 completed Not Available Not Available Not Available xylitol One tablet once a day 07/15 completed Not Available Not Available Not Available Fluzone Quad (PF) 60 mcg (15 mcg x 4)/0.5 mL IM syringe ADM 0.5ML IM UTD 09/14 completed Not Available Not Available Not Available BinaxNOW COVID-19 Ag Self Test kit TEST DIRECTED TODAY 12/02 completed Not Available Not Available Not Available Paxlovid 300 mg (150 mg x 2)-100 mg tablets in a dose pack TAKE 3 TABLETS BY MOUTH TWICE A DAY FOR 5 DAYS.GLENDA E DIRECTED ON PACKAGE 02/17 completed Not Available Not Available Not Available Vitals Date Recorded Body height Body mass index (BMI) Body weight Heart rate Oxygen saturation Systolic And Diastolic Provider Name and Address Organization Details Last Updated DateTime 5 175.26 cm 34.9 kg/m2 278032. 24 g 56 /min 97 % 110/62 mm[Hg] [facility] 15:39:30 Social History Question Answer Notes LastModified by Organizat ion Details LastModified Time Tobacco Smoking Status Former Smoker Not Available [facility] 05/04/2020 03:36:23 What Was The Date Of Your Most Recent Tobacco Screening? 06/15/2025 [email or web address] Information not available 06/15/2025 How Many Years Have You Smoked Tobacco? 35 [id number] Information not available 05/04/2020 Sex: Male Functional Status Question Answer Note LastModified by Organization D etails LastModified Time Do you or have you ever used any other forms of tobacco or nicotine? No [email or web address] Information not available 01/30/2024 Mental Status None recorded. Family History Relationship Description Onset Age of this Age Resolved Age Notes LastModified by Organization Details LastModified Time Mother Chronic obstructive pulmonary disease [email or web address] Not available 2024 15:33:56 Mother Irritable bowel syndrome [email or web address] Not available 2018 08:15:50 Father Family history of malignant neoplasm deceas ed [email or web address] Not available 06/15/2025 15:33:56 Father Snoring [email or web address] Not available 06/15/2025 15:33:56 Daughter Gastroesopha geal reflux disease [email or web address] Not available 2024 15:33:56 Medical History No medical history recorded. Immunizations Vaccine Type Date Status Note Provider Nam e and Address Organization Details Recorded Time COVID-19, mRNA, LNP-S, PF, 30 mcg/0.3 mL dose [facility] 05/11/2021 10:49:05 COVID-19, mRNA, LNP-S, PF, 30 mcg/0.3 mL dose 1 completed Jeanne jimenez [facility] 05/11/2021 10:49:13 COVID-19, mRNA, LNP-S, PF, 30 mcg/0.3 mL dose 1 completed Jeanne Magana [facility] 05/11/2021 10:49:21 influenza, unspecified formulation 3 completed Davida Mina [facility] 03/30/2023 08:38:22 Respiratory syncytial virus (RSV) MAB, unspecified 4 completed Gayatri Esteves [facility] 04/04/2024 08:48:21 influenza, unspecified formulation 4 completed Adam Carranza [facility] 06/29/2024 09:48:51 influenza, unspecified formulation 5 completed Jose Carranza DO [address] [place] [address], [address], [facility] 06/15/2025 15:54:13 Tdap 5 completed Jose Carranza DO [address] [place] [address], [address], [facility] 06/15/2025 15:54:54 Influenza, split virus, quadrivalent, preservative 9 [facility] 04/06/2019 15:29:04 Influenza, split virus, quadrivalent, preservative 0 completed Jose Carranza DO [address] [place], [address], [facility] 03/29/2020 12:04:20 Past Encounters Encounter ID Performer Location Encounter Start Date Encounter Closed Date Diagnosis/Indication Diagnosis SNOMED-CT Code Diagnosis ICD10 Code Diagnosis IMO Codes Diagnosis Note [id number] Jose Carranza DO [facility] [address] [facility],[place] [address] 06/15/2025 15:33:31 06/15/2025 16:26:51 Screening for cardiovascular system disease 435939247 Z13.6 LDL 97 this year per cardiol Screening for malignant neoplasm of colon 670736411 Z12.11 Depression screening 171 083206 Z13.31 PHQ9 NEGATIVE Atrial fibrillation 4943 6004 I48.91 did great after the ablationdo ing good overall Hyperlipidemia 04335694 E78.5 next lab draw Asthma 192506573 J45.90 9 stable doing ok until now he will treat conserv Chronic ob structive pulmonary disease 59146265 J41.8 discussed use of meds like flovent Preventive procedure 169 015106 Z00.00 71020515 overall he is doing well and is not having any major issues Poor short -term memory 894843596 R41.3 311142 Health Concerns Section Related Observation LastModified by Organization Detai ls LastModified Time None Recorded Concern Status LastModified by Organization Details LastModified Time None Recorded Payers Encounter Date Sequence Insurance Name Policy Number Policy Denson Covered Member ID Denson Member ID Guarantor Name 06/15/2025 2 [place] [id number] Alexis Chacon [id number] Alexis Chacon 06/15/2025 1 [place] [employer] [place] Alexis Chacon [id number] Alexis Chacon Notes Date Note Type Note Provider Name and Address Organization Details Recorded Time 025 text/ht ml Care Management - Atrial FibrillationReported by PatientCare ManagementFor medications, patient reportscompliant with medication. For prior imaging, patient reportsechocardiogramandrecent ecg.Interim HistoryFor associated symptoms, patient reportsno dizziness,no chest pain,no easy bruisability, andno rapid heart rate. Care Management - AsthmaReported by PatientHPIFor severity, patient reportsimproving,does not interfere with daily activities,does not disturb sleep, anddoes not cause nighttime awakening. For associated symptoms, patient reportsno fever,no fatigue,no irritability,no cough,normal appetite, andno change in productivity. Care Management - HyperlipidemiaReported by PatientHPIFor control, patient reportsusually well controlled,improving, andat goal. For complications, patient reportsno coronary artery disease,no heart attack,no cardiovascular disease,no pancreatitis, andno stroke. Medicare Annual Wellness VisitReported by PatientSocial/Behavioral HistoryFor diet and nutrition, patient reportshealthy diet. For fracture risk, patient reportsno history of fractures,no recent explained fracture,no sudden unexplained fractures, andno previous musculoskeletal injuries. For physical activity, patient reportsexercises on a regular basis,recent increase in physical activity, andgood physical condition.Mental Status:For depression risk, patient reportsnever feels sad, empty, or tearful,no loss of interest in activities,no significant changes in weight,no sleep disturbances or insomnia,no agitation,no loss of energy,no feelings of worthlessness or guilt,no thoughts of suicide,no history of depression, andno history of mood disorders. For orientation, patient reportsno disorientation to time,no disorientation to date, andno disorientation to place. For concentration and memory, patient reportsno decreased concentrating ability,no memory lapses or loss, anddoes not forget words. For speech/motor difficulties, patient reportsno speech difficulties,no difficulty expressing formulated concepts,no difficulty with fine manipulative tasks,no difficulty writing/copying,no slowed reaction time, anddoes not knock things over when trying to pick them up.Functional AbilityFor hearing, patient reportsno loss of hearing. For vision, patient reportsno vision problems. For activities of daily living, patient reportsable to bathe with limited or no assistance,able to contol urination and bowels,able to dress with limited or no assistance,able to feed self with limited or no assistance,able to get out of chair or bed with limited or no assistance,able to groom with limited or no assistance, andable to toilet with limited or no assistance. For instrumental activities of daily living, patient reportsable to do house work with limited or no assistance,able to grocery shop with limited or no assistance,able to manage medications with limited or no assistance,able to manage money with limited or no assistance,able to prepare meals with limited or no assistance, andable to use the phone with limited or no assistance. For falls risk assessment, patient reportsno frequent falls while walking,no fall in the past year,no fall since last visit, andno dizziness/vertigo. For home safety, patient reportsno unsafe mckenzie hazzards,no unsafe stairs,no unsafe gas appliances,working smoke/co detectors,wears protective head gear for biking/high velocity,use of seatbelts,practicing 'safer sex',no vision or hearing loss while driving,no fire arms,has hand bars in the bathroom/shower, andgood lighting in the home.ROS as noted in the HPI here for mwv relates Jose Carranza, DO [address] [facility], [place], [address], [facility] 06/15/2025 16:14:24
--- OUTSIDE RECORDS SUMMARY | 2025-06-15 22:32 | XMS_ITS | Encounter Summary ---
Author Organization [facility] Address [address] [place] [address] Phone Care Team Providers Care V Belt Finisher Name Role Phone Jose Gibson DO Primary Care Provider [phone] JayeJose jules DO Unavailable Encounter Details Date Type Department Care Team (Latest Contact Info) Description 01/03/2019 Transcribe Orders [facility] [address] [address] Miracle Newman, PADMINI [address] Linares. [address] [place] [address] [email or web address] Hyperlipidemia, unspecified hyperlipidemia type (Primary Dx) Social History Tobacco Use Types Packs/Day Years [...] documented as of this encounter Results * PSA (screening) (01/03/2019 7:42 AM EDT) PSA 0.48 0 - 4.00 ng/mL [facility] Blood 01/03/2019 7:42 AM EDT 01/03/2019 7:[address] [facility] PA- LAB BLOOD BKR ORDERABLES Fin al Result Performing Organization Address [facility] Co de Phone Number [address] [address] * Hepatitis C antibody, qualitative (01/03/2019 7:42 AM EDT) HCV Negative Negative [facility] Comment: This is a screening test and should be confirmed with molecular testing Blood 01/03/2019 7:42 AM EDT 01/03/2019 7:49 AM EDT [facility] LAB BLOOD BKR ORDERABLES Fin al Result Performing Organization Address [facility] de Phone Number [address] [address] * Hemoglobin A1c (01/03/2019 7:42 AM EDT) HEMOGLOBIN A1C 5.7 4.3 - 5.8 % [facility] Blood 01/03/2019 7:42 AM EDT 01/03/2019 7:49 AM EDT [facility] LAB BLOOD BKR ORDERABLES Fin al Result Performing Organization Address [facility] de Phone Number [address] [address] * Lipid panel (01/03/2019 7:42 AM EDT) HDL 33 mg/dL [facility] Comment: Interpretation <40 mg/dL: Low HDL cholesterol (major risk factor for CHD) Greater than or equal to 60 mg/dL: High HDL cholesterol ( negative risk factor for CHD) HDL - cholesterol is affected by a number of factors, e.g. smoking, excerise, hormones, sex and age. CHOLESTEROL 154 0 - 240 mg/dL [facility] TRIGLYCERIDES 102 30 - 160 mg/dL [facility] LDL 101 50 - 129 mg/dL [facility] Comment: LDL levels in terms of risk for coronary heart disease: <100 mg/dL: Optimal 100-129 mg/dL: Near or above optimal 130-159 mg/dL: Borderline high 160-189 mg/dL: High >190 mg/dL: Very High CARDIAC RISK RATIO 4.7 3.4 - 5.0 [facility] Blood 01/03/2019 7:42 AM EDT 01/03/2019 7:49 AM EDT us September Paty [place] LAB BLOOD BKR ORDERABLES Fin al Result [facility] [address] [place] [address] * (ABNORMAL) Comprehensive metabolic panel (01/03/2019 7:42 AM EDT) SODIUM 142 133 - 146 mmol/L [facility] POTASSIUM 4.7 3.3 - 5.1 mmol/L [facility] CHLORIDE 100 96 - 108 mmol/L [facility] CO2 27 21 - 35 mmol/L [facility] BUN 23(H) 6 - 19 mg/dL [facility] CREATININE 1.40 0.5 - 1.5 mg/dL [facility] GLUCOSE 99 70 - 99 mg/dL [facility] ALBUMIN 4.4 3.9 - 4.8 g/dL [facility] TOTAL PROTEIN 7.1 6.5 - 8.0 g/dL [facility] CALCIUM 9.3 8.4 - 10.3 mg/dL [facility] ALKALINE PHOSPHATASE 119(H) 39 - 117 U/L [facility] TOTAL BILIRUBIN 0.6 0.0 - 1.2 mg/dL [facility] AST 30 0 - 37 U/L [facility] ALT 36 0 - 40 U/L [facility] GLOBULIN 2.7 1 - 4.8 g/dL [facility] EGFR 54(L) >59 mL/min/1.7 3m2 [facility] Comment:If patient is black, multiply result by 1.159. Estimated glomerular filtration rate calculated using the CKD-EPI equation. ANION GAP 20 10 - 20 mmol/L [facility] Blood 01/03/2019 7:42 AM EDT 01/03/2019 7:49 AM EDT September Paty [facility] LAB BLOOD BKR ORDERABLES Fin al Result [facility] [address] [place] [address] documented in this encounter Visit Diagnoses Diagnosis Hyperlipidemia, unspecified hyperlipidemia type- Primary documented in this encounter Care Teams V Belt Finisher Relationship Specialty Start Date End Date Jose Gibson DO PCP - General Internal Medicine 05/21/17 Jose Gibson DO [address] [place] [id number] Insurance Assigned Provider 07/10/20 10/08/21 documented as of this encounter Additional Source Comments The information contained in this document represents components of the legal health record. It is not the complete legal health record.[facility]
--- OUTSIDE RECORDS SUMMARY | 2025-06-15 22:33 | XMS_ITS | Data Portability ---
Author Organization [facility], Telehealth Patient Home Address [address] [place] [address] Assessment Encounter Date Assessment Date Assessment LastModified by Organization Details LastModified Time 06/02/2024 06/02/2024 [id number] [place] [id number] (STEELER) MDM MODERATE MUST MEET 2 OUT OF 3 ELEMENTS: PROBLEMS, DATA OR RISK ELEMENT 1: PROBLEMS ADDRESSED 1 OR MORE CHRONIC ILLNESS WITH EXACERBATION OR 2 OR MORE STABLE CHRONIC ILLNESSES OR 1 UNDIAGNOSED NEW PROBLEM OR 1 ACUTE ILLNESS W/SYMPTOMS OR 1 ACUTE COMPLICATED INJURY ELEMENT 2: DATA MUST MEET 1 OF 3 CATEGORIES CATEGORY 1: REVIEW OF PRIOR EXTERNAL NOTES, REVIEW OF RESULTS, ORDERING OF EACH TEST, ASSESSMENT REQUIRING INDEPENDENT HISTORIAN OR CATEGORY 2: INDEPENDENT INTERPRETATION OF TESTS BY ANOTHER PHYSICIAN OR SPECIALIST OR CATEGORY 3: DISCUSSION OF MGT OR TEST INTERPRETATION W/EXTERNAL PHYSICIAN OR SPECIALIST ELEMENT 3: RISK RISK OF COMPLICATIONS AND/OR MORBIDITY OR MORTALITY OF PATIENT MANAGEMENT PROVIDER MUST THOROUGHLY DOCUMENT EACH ELEMENT THAT IS COVERED Not available 06/02/2024 16:55:35 06/27/2024 06/27/2024 [id number] [place] [id number] (STEELER) MDM MODERATE MUST MEET 2 OUT OF 3 ELEMENTS: PROBLEMS, DATA OR RISK ELEMENT 1: PROBLEMS ADDRESSED 1 OR MORE CHRONIC ILLNESS WITH EXACERBATION OR 2 OR MORE STABLE CHRONIC ILLNESSES OR 1 UNDIAGNOSED NEW PROBLEM OR 1 ACUTE ILLNESS W/SYMPTOMS OR 1 ACUTE COMPLICATED INJURY ELEMENT 2: DATA MUST MEET 1 OF 3 CATEGORIES CATEGORY 1: REVIEW OF PRIOR EXTERNAL NOTES, REVIEW OF RESULTS, ORDERING OF EACH TEST, ASSESSMENT REQUIRING INDEPENDENT HISTORIAN OR CATEGORY 2: INDEPENDENT INTERPRETATION OF TESTS BY ANOTHER PHYSICIAN OR SPECIALIST OR CATEGORY 3: DISCUSSION OF MGT OR TEST INTERPRETATION W/EXTERNAL PHYSICIAN OR SPECIALIST ELEMENT 3: RISK RISK OF COMPLICATIONS AND/OR MORBIDITY OR MORTALITY OF PATIENT MANAGEMENT PROVIDER MUST THOROUGHLY DOCUMENT EACH ELEMENT THAT IS COVERED Not available 06/27/2024 09:18:56 08/06/2024 08/06/2024 [id number] [place] [id number] (STEELER) MDM HIGH MUST MEET 2 OUT OF 3 ELEMENTS: PROBLEMS, DATA OR RISK ELEMENT 1: PROBLEMS 1 OR MORE CHRONIC ILLNESS W/SEVERE EXACERBATION, PROGRESSION MAY REQUIRE HOSPITAL LEVEL CARE OR 1 ACUTE OR CHRONIC ILLNESS OR INJURY THAT POSES A THREAT TO LIFE OR BODILY FUNCTION ELEMENT 2: DATA: MUST MEET 2 OF 3 CATEGORIES CATEGORY 1 REVIEW OF PRIOR EXTERNAL NOTES REVIEW OF THE RESULTS ORDERING OF EACH TEST ASSESSMENT REQUIRING INDEPENDENT HISTORIAN(S) CATEGORY 2: INDEPENDENT INTERPRETATION OF TESTS BY ANOTHER PROVIDER/SPECIALI ST CATEGORY 3: DISCUSSION OF MGT OR TEST INTERPRETATION W/EXTERNAL PHYSICIAN/SPECIAL IST ELEMENT 3: RISK HIGH RISK OF MORBIDITY FROM ADDITIONAL DIAGNOSTIC TESTING OR TREATMENT PROVIDER MUST THOROUGHLY DOCUMENT EACH ELEMENT THAT IS COVERED . Not available 08/06/2024 16:41:05 02/09/2025 02/09/2025 [id number] [place] [id number] (STEELER) MDM MODERATE MUST MEET 2 OUT OF 3 ELEMENTS: PROBLEMS, DATA OR RISK ELEMENT 1: PROBLEMS ADDRESSED 1 OR MORE CHRONIC ILLNESS WITH EXACERBATION OR 2 OR MORE STABLE CHRONIC ILLNESSES OR 1 UNDIAGNOSED NEW PROBLEM OR 1 ACUTE ILLNESS W/SYMPTOMS OR 1 ACUTE COMPLICATED INJURY ELEMENT 2: DATA MUST MEET 1 OF 3 CATEGORIES CATEGORY 1: REVIEW OF PRIOR EXTERNAL NOTES, REVIEW OF RESULTS, ORDERING OF EACH TEST, ASSESSMENT REQUIRING INDEPENDENT HISTORIAN OR CATEGORY 2: INDEPENDENT INTERPRETATION OF TESTS BY ANOTHER PHYSICIAN OR SPECIALIST OR CATEGORY 3: DISCUSSION OF MGT OR TEST INTERPRETATION W/EXTERNAL PHYSICIAN OR SPECIALIST ELEMENT 3: RISK RISK OF COMPLICATIONS AND/OR MORBIDITY OR MORTALITY OF PATIENT MANAGEMENT PROVIDER MUST THOROUGHLY DOCUMENT EACH ELEMENT THAT IS COVERED Not available 02/09/2025 16:14:55 06/15/2025 06/15/2025 Patient presente d to office [...] available Lab TSH, serum or plasma 2024 [facility], [address] [place] [address], [id number], 06/15/2025 16:10:28 ESR (erythroc yte sedimenta tion rate), blood 2024 [facility], [address] [place] [address], [address], 06/15/2025 16:10:29 vitamin B12 + folate, serum or blood 2024 025 [facility], [address] [place] [address], [id number], 06/15/2025 16:10:29 hemoglobi n, gastroint estinal, stool 2024 025 [facility], [address] [place] [address], [address], 06/15/2025 16:10:28 CMP, serum or plasma 2023 024 [facility], [address] [place] [address], [address], 06/02/2024 17:01:48 CBC 2023 [facility], [address] [place] [address], [address], 06/02/2024 17:01:47 PSA, serum or plasma 2023 [facility], [address] [place] [address], [address], 06/02/2024 17:01:47 lipid panel, serum 2023 024 [facility], [address] [facility], [place], [address], 06/02/2024 17:01:[address] referral - pending lab will be forwarded 2024 025 [email or web address] Baljinder Rehman MD, [address] [place] [address], [address], 06/15/2025 16:26:51 [email or web address] gist referral - please note pt has had cough for 3months following an RSV vaccine he has undergone workup and various treatment without relief. wondering if the rsv had some type of reaction on him vs laryngeal reflux vs cough variant asthma?? he does have a distant hx of smoking and a PFT from 2021 showed mild copd. thank you for your time . mb 2023 024 [email or web address] Vargas MD, [address] [place] [address], [address], 07/04/2024 09:35:01 Procedures None recorded. Surgeries None recorded. Imaging XR, chest, 2 view 2024 025 [facility], [address] [place], [address], 08/18/2024 14:28:53 Medication Orders moxifloxa essie 400 mg tablet 2024 025 [facility]acy #2024, [address] [place], [address], 02/09/2025 15:50:22 benzonata te 200 mg capsule 2023 025 [email or web address] [facility] #2024, [address] [place], [address], 02/09/2025 15:49:00 atorvasta tin 40 mg tablet 2023 025 [email or web address] [facility]acy #2024, [address] [place], [address], 05/22/2025 15:20:41 metoprolo l succinate ER 50 mg tablet,ex tended release 24 hr 2023 024 [facility], [address] [place], [address], 08/25/2024 14:01:17 Patient TargetsNo targets recorded. Patient Instructions Encounter Date Encounter Id Patient Instructions Last Modified By Organization Details Last Modified Time 06/02/2024 [id number] pulse oximetry* Not available 06/02/2024 16:56:30 06/27/2024 [id number] chronic cough: care instructions Not available 06/27/2024 09:20:40 08/06/2024 [id number] prediabetes: car e instructions Not available 08/06/2024 16:41:10 pulse oximetry* Not available 08/06/2024 16:41:10 aspiration pneumonia: care instructions Not available 08/06/2024 16:41:10 atrial fibrillation: care instructions Not available 08/06/2024 16:41:10 chronic obstructive pulmonary disease (COPD): care instructions Not available 08/06/2024 16:41:09 learning about copd and how to prevent lung infections Not available 08/06/2024 16:41:10 02/09/2025 [id number] pulse oximetry* Not available 02/09/2025 16:15:37 06/15/2025 [id number] pulse oximetry* Not available 06/15/2025 16:06:14 advance care planning: care instructions Not available 06/15/2025 16:06:14 Discussed and explained advance directives such as standard forms to the patient. Face to face discussion lasted for a duration of _35__ minutes. 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 wondering if the rsv had some type of reaction on him vs laryngeal reflux vs cough variant asthma?? he does have a distant hx of smoking and a PFT from 2021 showed mild copd. thank you for your time . george Referring Physician: Jose Carranza, Internal Medicine, Encounter Date: 06/27/2024 Neurologist Referral for Poo r short-term memory pending lab will be forwarded Referring Physician: Jose Carranza, Internal Medicine, Encounter Date: 06/15/2025 Results Created Date Observation Date Name Description Value Unit Range Abnormal Flag Note LastModifiedBy Organization Detail LastModifiedTime 06/02/20 24 06/02/2024 pulse oxime try* Result 97% Not Available [facility] [address] [place] [address], [place], [address], 05/28/2024 10:33:02 08/06/19 25 08/06/2024 pulse oxime try* Result 98% Not Available [facility] [address] [place] [address], [place], [address], 08/05/2024 09:10:54 02/10/20 25 02/09/2025 pulse oxime try* Result 98 Not Available [facility] [address], [place], [address], 01/27/2025 10:44:16 06/15/20 25 06/15/2025 pulse oxime try* Result 96 Not Available [facility] [address], [place], [address], 06/01/2025 13:58:15 05/27/20 24 05/27/2024 XR, chest , 2 view No observ ation record ed. jbda [facility] (Medical Records) [address] [facility], [place], [address], 05/28/2024 06:50:06 08/18/19 25 08/18/2024 XR, chest , 2 view No observ ation record ed. [facility] [address] [facility] [address], [place], [address], 08/18/2024 21:24:36 Result Notes None recorded. Problems Name Problem SNOMED Code Status Onset Date Resolution Date Notes Provider Name and Address Organization Details Recorded Time Tachniecy a 4306058 Active 2017 Not Available [facility] 3 13:33:26 Hypertensi ve disorder 07861413 Active 2017 Not Available [facility] 3 13:33:26 Impaired fasting glycemia 921994839 Active 2017 Not Available [facility] 3 13:33:26 Obstructiv e sleep apnea syndrome 53530737 Active 2017 TRU COLEMAN [address] [facility], [place], [address], [facility] 5 16:32:08 Hyperlipid emia 46303815 Active 2017 Not Available [facility] 3 13:33:26 Herpes simplex 54137768 Active 2018 HVS2 Not Available [facility] 3 13:33:26 Chronic obstructiv e pulmonary disease 06054709 Active 2019 Not Available [facility] 3 13:33:26 COVID-19 490364394 Active 2021 Not Available [facility] 3 13:33:26 Acute bronchitis 97955524 Active 2021 Not Available [facility] 3 13:33:25 Dyspnea on exertion 51555279 Active 2021 Not Available [facility] 3 13:33:26 Acute urinary tract infection 478634522 Active 2021 Not Available [facility] 3 13:33:26 Constipati on 81097425 Active 2021 Not Available [facility] 3 13:33:26 Cough 79990552 Active 2021 Not Available [facility] 3 13:33:26 Asthma 980550986 Active 2021 Not Available [facility] 3 13:33:26 Acute sinusitis 95119027 Active 2021 Not Available [facility] 3 13:33:26 Calcific coronary arterioscl erosis 96137131 Active 2023 Jose Carranza DO [address] [place] [address], [address], [facility] 4 02:13:46 Atrial fibrillati on 17802596 Active 2023 TRU COLEMAN [address] [place] [address], [address], [facility] 4 11:05:12 Fatigue 05645857 Active 2023 Jose Carranza DO [address] [place] [address], [address], [facility] 4 16:29:08 Chronic cough 30968656 Active 2023 Jose Carranza DO [address] [place] [address], [address], [facility] 4 09:19:03 Aspiration pneumonia 498544462 Active 2024 Jose Carranza DO [address] [place] [address], [address], [facility] 5 16:37:20 Poor short-term memory 571435344 Active 2024 Jose Carranza DO [address] [place] [address], [address], [facility] 5 16:03:49 Problem Notes None recorded. Procedures Surgical History Date Name Laterality Status Provider Name and Address Organization Details Recorded Time 7 Colonoscopy completed Katie Ramos [facility] 01/08/2019 08:13:25 Imaging Results None [...] Details Last Updated DateTime 5 175.26 cm 34 kg/m2 469449. 25 g 82 /min 98 % 132/82 mm[Hg] Jose Carranza, [address] [place], [address] [place], [place] - [facility] 5 16:08:57 Date Recorded Body height Body mass index (BMI) Body weight Oxygen saturation Heart rate Systolic And Diastolic Provider Name and Address Organization Details Last Updated DateTime 5 175.26 cm 33.8 kg/m2 218343. 01 g 96 % 67 /min 134/76 mm[Hg] ANUJ ARRINGTON [facility] 5 15:55:13 Date Recorded Body height Body mass index (BMI) Body weight Heart rate Oxygen saturation Systolic And Diastolic Provider Name and Address Organization Details Last Updated DateTime 4 175.26 cm 33.7 kg/m2 221196. 06 g 86 /min 97 % 130/86 mm[Hg] Jose Carranza, DO [address] [place], [address], [facility] 4 16:34:35 Date Recorded Body height Body mass index (BMI) Body weight Heart rate Oxygen saturation Systolic And Diastolic Provider Name and Address Organization Details Last Updated DateTime 175.26 cm 34.9 kg/m2 089523. 24 g 56 /min 97 % 110/62 mm[Hg] Maya West [facility] 5 15:39:30 Social History Question Answer Notes LastModified by Organizat ion Details LastModified Time Tobacco Smoking Status Former Smoker Not Available [facility] 05/04/2020 03:36:23 What Was The Date Of Your Most Recent Tobacco Screening? 06/15/2025 [email or web address] Information not available 06/15/2025 How Many Years Have You Smoked Tobacco? 35 [id number] Information not available 05/04/2020 Sex: Male Functional Status Question Answer Note LastModified by Organization D etails LastModified Time Do you or have you ever used any other forms of tobacco or nicotine? No [email or web address] Information not available 01/30/2024 Mental Status None recorded. Family History Relationship Description Onset Age of this Age Resolved Age Notes LastModified by Organization Details LastModified Time Mother Chronic obstructive pulmonary disease [email or web address] Not available 2024 15:33:56 Mother Irritable bowel syndrome [email or web address] Not available 2018 08:15:50 Father Family history of malignant neoplasm deceas ed Not available 06/15/2025 15:33:56 Father Snoring Not available 06/15/2025 15:33:56 Daughter Gastroesopha geal reflux disease [email or web address] Not available 2024 15:33:56 Medical History No medical history recorded. Immunizations Vaccine Type Date Status Note Provider Nam e and Address Organization Details Recorded Time COVID-19, mRNA, LNP-S, PF, 30 mcg/0.3 mL dose [facility] 10:49:05 COVID-19, mRNA, LNP-S, PF, 30 mcg/0.3 mL dose 1 [facility] 10:49:13 COVID-19, mRNA, LNP-S, PF, 30 mcg/0.3 mL dose 1 completed Jeanne Magana [facility] 05/11/2021 10:49:21 influenza, unspecified formulation 3 completed Davida Mina [facility] 03/30/2023 08:38:22 Respiratory syncytial virus (RSV) MAB, unspecified 4 completed Gayatri Esteves [facility] 04/04/2024 08:48:21 influenza, unspecified formulation 4 completed Adam Carranza [facility] 06/29/2024 09:48:51 influenza, unspecified formulation 5 completed Jose Carranza DO [address] [place] [address], [address], [facility] 06/15/2025 15:54:13 Tdap 5 completed Jose Carranza DO [address] [place] [address], [address], [facility] 06/15/2025 15:54:54 Influenza, split virus, quadrivalent, preservative 9 completed Adam Carranza [facility] 04/06/2019 15:29:04 Influenza, split virus, quadrivalent, preservative 0 completed Jose Carranza DO [address] [place] [address], [address], [facility] 03/29/2020 12:04:20 Past Encounters Encounter ID Performer Location Encounter Start Date Encounter Closed Date Diagnosis/Indication Diagnosis SNOMED-CT Code Diagnosis ICD10 Code Diagnosis IMO Codes Diagnosis Note [id number] Jose Carranza [facility] [address] [facility] [address] 11/27/2017 10:29:40 11/27/2017 11:33:17 Hypertensive disorder 44098070 I10 good control Hyperlipidemia 51971170 E78.5 on simvastati n Allergic rhinitis 542141 04 J30.9 on claritin-d chronicall y, try taking zyrtec, xyzal, or leonardo given HTN would recommend d/c the sudafed consider flonase as well on a more consistent basis [id number] Jose Carranza [facility] [address] [facility] [address] 01/07/2018 15:27:28 01/07/2018 15:58:52 Hyperlipidemia 16673779 E78.5 on simvastati n will check labs reinforced healthy diet/exerc ise Obstructiv e sleep apnea syndrome 62550238 G47.33 uses cpap nightly Impaired f asting glycemia 803437903 R73.01 will check bs and a1c reinforced healthy diet Hypertensive disorder 38 698473 I10 good control [id number] Jose Carranza [facility] [address] [facility],[place] [address] 07/10/2018 15:57:12 07/10/2018 17:50:21 Hyperlipidemia 55937492 E78.5 on simvastati n will check labs reinforced healthy diet/exerc ise Obstructiv e sleep apnea syndrome 18598755 G47.33 uses cpap nightly Impaired f asting glycemia 681273413 R73.01 will check bs and a1c reinforced healthy diet Hypertensive disorder 38 576322 I10 good control Screening procedure 2012 5006 Z13.9 Screening for malignant neoplasm of prostate 130142388 Z12.5 Body mass index 30+ - obesity 699415725 Z68.35 healthy diet and exercise struggles with motivation discussed exercise habits discussed eating habits suggested areas of improvemen t [id number] Jose Carranza [facility] [address] [facility],[place] [address] 10/28/2018 10:39:58 10/28/2018 11:30:51 Hypertensive disorder 48547739 I10 stable and without issues tolerates the meds ok Impaired f asting glycemia 744232864 R73.01 will be obtaining lab next cycle Obstructiv e sleep apnea syndrome 70541426 G47.33 wears every night with good results Hyperlipidemia 97490289 E78.5 next lab draw [id number] Jose Carranza [facility] [address] [facility],[place] [address] 01/08/2019 15:31:40 01/08/2019 16:20:47 Adult health examination 309301411 Z00.00 Active or passive immunization 914165806 Z23 Hyperlipidemia 85439802 E78.5 on simvastati n with good control reinforced healthy diet/exerc ise Impaired f asting glycemia 599250181 R73.01 stable reinforced healthy diet Hypertensive disorder 38 644565 I10 good control Body mass index 30+ - obesity 057944486 Z68.35 healthy diet and exercise struggles with motivation discussed exercise habits discussed eating habits [place] [id number] NAIMA Guan [facility] [address] [facility] [place], [address]e [facility] [place] [address] 07/15/2019 15:45:00 07/15/2019 16:18:34 Hyperlipidemia 55404839 E78.5 on simvastati n will check labs reinforced healthy diet/exerc ise Obstructiv e sleep apnea syndrome 08219859 G47.33 uses cpap nightly with relief Impaired f asting glycemia 413249444 R73.01 will check bs and a1c praised for weight loss and healthy diet choices Hypertensive disorder 38 274492 I10 very well controlled will lower lisinopril from 30 mg to 20 mg per day Body mass index 30+ - obesity 666573445 Z68.35 healthy diet and exercise discussed exercise habits discussed eating habits suggested areas [place] [facility] [id number] Jose Carranza [facility] [address] [facility] [address] [address] 01/16/2020 15:35:15 01/16/2020 16:20:46 Adult health examination 757253740 Z00.00 a few concerns today we discussed Chronic ob structive pulmonary disease 14297973 J44.9 was tested at work physical with a PFT said he had 63% FEV1 and pattern which suggested COPD start with fast acting inhaler Deviated nasal septum 12 4836410 J34.2 had surgery done in 1994, the patient reports that he is starting to feel like he did before surgery with nasal congestion and [id number] Jose Carranza [facility] [address] [facility] [address] 06/15/2020 08:42:50 06/15/2020 11:38:19 Lesion of lung 166275455 R91.8 will follow up with lung CT since XR will not show as much Chronic ob structive pulmonary disease 46692231 J44.9 stable per patient given hx of COPD/smoki ng will need fu CT from his XR to better determine [place] the [place] [id number] Jose Carranza [facility] [address] [facility] [address] 07/07/2020 13:32:38 07/07/2020 16:14:15 Spider bite wound 879107670 T14.8XXS will start patient on doxy for 7 days do to risk of infection of the area Allergic r eaction to insect venom 670112494 T63.481S will start patient on steriod cream, not near the eye or widespread enough to require pred taper will monitor his progress [id number] Jose Carranza [facility] [address] [facility] [address] 09/14/2020 16:02:41 09/15/2020 08:56:52 Renal function tests outside reference range 711707944 R94.4 will repeat labs as the test was done in december will see if resolved or same or worsened fu with results in office Acute nont raumatic kidney injury 2832276508 29603 N17.9 given BW results, most suggestive of ETHEL will repeat labs to establish diagnosis Infection of lacrimal gland 890721115 H04.009 reports right eye infection, swelling of the right eye, possible lacrimal gland infection start on medication Impaired f asting glycemia 782275068 R73.01 fu with A1c check to see if that is what is causing it Fatigue 38393626 R53.83 will also check TSH, says he is tired [id number] Jose Carranza [facility] [address] [facility] [place] [address] 04/05/2021 11:42:48 04/06/2021 08:21:37 Chronic obstructive pulmonary disease 08256781 J41.8 stable per patient Acute exac erbation of chronic obstructive pulmonary disease 607798437 J44.1 acute exacerbati on probablene gative for COVID on sunday [id number] Jose Carranza [facility] [address] [place] [address],[place] [address] 05/18/2021 09:11:18 05/18/2021 15:38:06 Benign prostatic hyperplasia 118668398 N40.0 will have him do a PSA Urinary incontinence 165 360777 N39.46 not UTI, will fu with PSA to determine if it is BPH [id number] Jose Carranza [facility] [address] [facility] [address] 02/17/2022 15:24:17 02/17/2022 16:12:24 Active or passive immunization 583795518 Z23 Will consider Tdap and Shingles Adult [facility] examination 406252902 Z00.00 overall he is doing well and is not having any major issues Chronic ob structive pulmonary disease 77608051 J41.8 we will need to get a PFT [id number] Jose Carranza [facility] [address] [facility] [address] 03/08/2022 09:15:34 03/08/2022 11:22:42 Acute urinary tract infection 634780827 N10 will start on cipro and fu on sunday with an update Constipation 15711557 K5 9.09 will give me a call on sunday [id number] Jose Carranza [facility] [address] [facility] [address],[place] [address] 12/03/2023 13:44:30 12/03/2023 14:34:50 Active or passive immunization 967518413 Z23 Will consider Tdap and Shingles Adult heal th examination 309806087 Z00.00 overall he is doing well and is not having any major issues Asthma 239401873 J45.90 9 Depression screening 171 425001 Z13.31 PHQ9 NEGATIVE Hypertensive disorder 38 170589 I10 stable and without issues tolerates the meds ok Chronic ob structive pulmonary disease 73387344 J41.8 discussed use of meds like flovent [id number] Jose Carranza [facility] [address] [facility],[place] [address] 01/30/2024 13:27:28 02/01/2024 11:16:53 Atrial fibrillation 98059734 I48.91 await echo and ETT will get him to cardiologi and start metoprolol as well as stop the lisinopril call if ANY issues and we will see him after test Hypertensive disorder 38 327194 I10 change to metop from lisinopril [id number] Jose Carranza [facility] [address] [facility],[place] [address] 03/31/2024 15:09:02 03/31/2024 16:12:28 Asthma 166307637 J45.909 stable doing ok until now he will treat conserv Chronic ob structive pulmonary disease 29935828 J41.8 discussed use of meds like flovent Calcific c oronary arteriosclerosis 39536427 I25.10 stable and doing well [id number] Jose Carranza [facility] [address] [facility],[place] [address] 06/02/2024 16:11:18 06/03/2024 14:26:15 Asthma 307004617 J45.909 stable doing ok until now he will treat conserv Atrial fibrillation 4943 6004 I48.91 await echo and ETT will get him to cardiologi st and start metoprolol as well as stop the lisinopril call if ANY issues and we will see him after testpulse is still irreg irrreg and in low 100's Calcific c oronary arteriosclerosis 08190226 I25.10 stable and doing well Hyperlipidemia 80886515 E78.5 next lab draw Hypertensive disorder 38 057081 I10 change to metop from lisinopril [id number] Jose Carranza [facility] [address] [facility],[place] [facility] [address] 06/27/2024 09:01:54 06/27/2024 10:09:39 Hyperlipidemia 84932933 E78.5 next lab draw Chronic cough 91669648 R 05.3 [id number] Jose Carranza [facility] [address] [facility],[place] [facility] [address] 08/06/2024 15:57:09 08/06/2024 16:48:54 Asthma 293021782 J45.909 stable doing ok until now he will treat conserv Atrial fibrillation 4943 6004 I48.91 await echo and ETT will get him to cardiologi and start metoprolol as well as stop the lisinopril call if ANY issues and we will see him after testpulse is still irreg irrreg and in low 100's Calcific c oronary arteriosclerosis 36787154 I25.10 stable and doing wellwaitin g for cardio Chronic ob structive pulmonary disease 97611491 J41.8 discussed use of meds like flovent Hypertensive disorder 38 481866 I10 change to metop from lisinopril Impaired f asting glycemia 263094415 R73.01 will be obtaining lab next cycle Aspiration pneumonia 422 674246 J69.0 will need tx also will need f/u cxr [id number] Jose Carranza [facility] [address] [facility] [address] 02/09/2025 15:42:34 02/09/2025 16:38:41 Depression screening 394116139 Z13.31 PHQ9 NEGATIVE Hypertensive disorder 38 157508 I10 change to amlodipine from metop from lisinopril Atrial fibrillation 4943 6004 I48.91 did great after the ablationdo ing good overall Asthma 344811114 J45.90 9 stable doing ok until now he will treat conserv Chronic ob structive pulmonary disease 04642727 J41.8 discussed use of meds like flovent [id number] DO Krishna [facility] [address],[place] [address] 06/15/2025 15:33:31 06/15/2025 16:26:51 Screening for cardiovascular system disease 527091455 Z13.6 LDL 97 this year per cardiol Screening for malignant neoplasm of colon 746633903 Z12.11 Depression screening 171 039321 Z13.31 PHQ9 NEGATIVE Atrial fibrillation 4943 6004 I48.91 did great after the ablationdo ing good overall Hyperlipidemia 21258962 E78.5 next lab draw Asthma 908431550 J45.90 9 stable doing ok until now he will treat conserv Chronic ob structive pulmonary disease 83844805 J41.8 discussed use of meds like flovent Preventive procedure 169 658869 Z00.00 30530481 overall he is doing well and is not having any major issues Poor short -term memory 301486838 R41.3 518058 Health Concerns Section Related Observation LastModified by Organization Detai ls LastModified Time None Recorded Concern Status LastModified by Organization Details LastModified Time None Recorded Advance Directives Directive None Recorded Payers Insurance Date Sequence Insurance Name Policy Number Policy Denson Covered Member ID Denson Member ID Guarantor Name 02/15/2022 1 [place] [facility] [id number] Isa Dominguez [id number] Alexis Chacon 06/26/2024 2 [place] [employer] Alexis Chacon [id number] Alexis Chacon 06/26/2024 1 [facility] [id number] Alexis Chacon [id number] Alexis Chacon 11/28/2024 1 [facility] [id number] Alexis Chacon [id number] Alexis Chacon 06/26/2024 1 [facility] [id number] Alexis Chacon 06/26/2024 2 [place] Alexis Chacon [id number] Alexis Chacon 06/12/2025 2 [place] [id number] Alexis Chacon [id number] Alexis Chacon 06/12/2025 1 MED[place] [facility] Alexis Chacon [id number] Alexis Chacon Notes Date Note Type Note Provider Name and Address Organization Details Recorded Time 024 text/ht ml Care Management - HypertensionReported by PatientHPIFor self care, patient reportsnot under emotional stress. For severity, patient reportssymptoms are improvinganddoes not interfere with daily activities. For associated symptoms, patient reportsno dizziness,no lightheadedness,no chest pain,no shortness of breath,no palpitations,no edema,no calf muscle cramps,no blurred vision,no confusion,no headaches, andno fatigue.ROS as noted in the HPI has been coughing with tickle deep in chest and throatalso he has been more fatigued and noticed his hr afib is in 100s he is only on [id number] Jose NehemiasAngelica Carranza, [address] [place] [address], [address], [facility] 06/02/2024 16:57:01 024 text/ht ml ROS as noted in the HPI patient is evaluated via tele/video assessment per patient consent during current pandemic long discussion re cough persisting Jose NehemiasAngelica Carranza, [address] [place] [address], [address], [facility] 06/27/2024 09:35:24 025 text/ht ml Care Management - HypertensionReported by PatientHPIFor self care, patient reportsnot under emotional stress. For severity, patient reportssymptoms are improvinganddoes not interfere with daily activities. For associated symptoms, patient reportsno dizziness,no lightheadedness,no chest pain,no shortness of breath,no palpitations,no edema,no calf muscle cramps,no blurred vision,no confusion,no headaches, andno fatigue.has not seen cardiol yet as he keeps getting bumped ROS as noted in the HPI here for rechk and had an incident with tessalon had taken one without water and it got stuck in back of throat and released thus paralyzing his epiglottishe had been drinking a lot of water to try to get down but was prob aspiratinghis cough has picked up in freq since then no fever but did have some signif chills early on now cough is clear but was colored a couple dyas ago Jose Del CidAngelica Carranza, DO [address] [place], [address], [facility] 08/06/2024 16:42:49 025 text/ht ml Care Management - HypertensionReported by PatientHPIFor self care, patient reportsnot under emotional stress. For severity, patient reportssymptoms are improvinganddoes not interfere with daily activities. For associated symptoms, patient reportsno dizziness,no lightheadedness,no chest pain,no shortness of breath,no palpitations,no edema,no calf muscle cramps,no blurred vision,no confusion,no headaches, andno fatigue. Care Management - Atrial FibrillationReported by PatientCare [...] fatigue,no irritability,no cough,normal appetite, andno change in productivity.ROS as noted in the HPI here since ablationdoing well no major issues Jose NehemiasAngelica Carranza, DO [address] [place], [address], [facility] 02/09/2025 16:18:54 025 text/ht ml Care Management - Atrial [...] here for mwv relates Jose Carranza, DO [address] [place] [address], [place], [address], [facility] 06/15/2025 16:14:24
== END 2025-06-15 16:18 | disposition home or self-care (01) ==
LOC: HO.MANLDS 16:17
PROVIDERS: Visit Provider Internal Medicine
DX: R41.3 Other amnesia (principal)
CPT/HCPCS: 36415; 82607; 82746; 84443; 85652

== ENCOUNTER 2025-06-23 09:27 | Outpatient (REF) | payer MEDICARE, SELFPAY ==
[2025-06-30 12:06] LABS: FIT Int Ctl YES; FIT Lot M502755; FIT1 NEGATIVE (NEGATIVE)
--- OUTSIDE RECORDS SUMMARY | 2025-06-30 12:07 | XMS_ITS | Encounter Summary ---
Author Organization [facility] Address [address] [place] [address] Phone Care Team Providers Care Plastic Fabricator Name Role Phone Jose Gibson Primary Care Provider [phone] JayeJose jules Unavailable Encounter Details Date Type Department Care Team (Late st Contact Info) Description 08/13/2017 Ancillary Orders [facility], X-Ray - [address] [address] Miracle Newman, PADMINI Linares. Dante. [address] [place] [address] [email or web address] Cough Social History Tobacco Use Types Packs/Day [...] of an acute chest process. POS - [id number] Narrative 08/13/2017 4:38 PM EST HISTORY: See [...] of an acute chest process. POS - [id number] September Paty [facility] CHEST Final Result documented in this encounter Visit Diagnoses Diagnosis Cough Cough documented in this encounter Care Teams Plastic Fabricator Relationship Specialty Start Date End Date Jose iGbson DO PCP - General Internal Medicine 05/21/17 Jose Gibson DO [address] [place] [address] Insurance Assigned Provider 07/10/20 10/08/21 documented as of this encounter Additional Source Comments The information contained in this document represents components of the legal health record. It is not the complete legal health record.[facility]
--- OUTSIDE RECORDS SUMMARY | 2025-06-30 12:07 | XMS_ITS | Encounter Summary ---
Author Organization [facility] Address [address] [place] [address] Phone Care Team Providers Care Chief Wellness Officer Name Role Phone Jose Gibson Primary Care Provider [phone] Encounter Details Date Type Department Care Team (Late st Contact Info) Description 09/05/2024 Procedure Pass [facility], Ct Scan - [facility] [address] [place] [address] Social History Tobacco Use Types Packs/Day Years [...] on filedocumented in this encounter Care Teams Chief Wellness Officer Relationship Specialty Start Date End Date Jose Gibson DO [email or web address] PCP - General Internal Medicine 05/21/17 documented as of this encounter Additional Source Comments The information contained in this document represents components of the legal health record. It is not the complete legal health record.[facility]
--- OUTSIDE RECORDS SUMMARY | 2025-06-30 12:07 | XMS_ITS | Encounter Summary ---
Author Organization [facility] Address [address] [place] [address] Phone Care Team Providers Care Film And Video Editor Name Role Phone Jose Gibson Primary Care Provider [phone] Encounter Details Date Type Department Care Team (Late st Contact Info) Description 09/05/2024 Procedure Pass [facility], Ct Scan - [facility] [address] [place] [address] Social History Tobacco Use Types Packs/Day Years [...] on filedocumented in this encounter Care Teams Film And Video Editor Relationship Specialty Start Date End Date Jose Gibson DO [email or web address] PCP - General Internal Medicine 05/21/17 documented as of this encounter Additional Source Comments The information contained in this document represents components of the legal health record. It is not the complete legal health record.[facility]
--- OUTSIDE RECORDS SUMMARY | 2025-06-30 12:07 | XMS_ITS | Continuity of Care Document ---
Author Organization [facility] Address [address] [place] [address] Assessment Encounter Date Assessment Date Assessment LastModified [...] Organization Details Last Modified Time Details Appointments None recorded. Lab TSH, serum or plasma 2024 025 [facility], [address] [place] [address], [address], 11:50:42 ESR (erythrocy te sedimentat ion rate), blood 2024 025 [facility], [address] [place] [address], [address], 5 16:10:29 vitamin B12 + folate, serum or blood 2024 025 [facility], [address] [place] [address], [address], 16:10:29 hemoglobin , gastrointe stinal, stool 2024 025 [facility], [address] [place] [address], [address], 16:10:28 Referral neurologis t referral - pending lab will be forwarded 2024 025 [email or web address] Baljinder Rehman MD, [address] [place] [address], [address], 16:26:51 Procedures None recorded. Surgeries None recorded. Imaging None recorded. Medication Orders None recorded. Patient TargetsNo targets recorded. Patient Instructions Encounter Date Encounter Id Patient Instructions Last Modified By Organization Details Last Modified Time 06/15/2025 [id number] pulse oximetry* Not available 06/15/2025 16:06:14 advance care planning: care instructions Not available 06/15/2025 16:06:14 Discussed and explained advance directives such as standard forms to the patient. Face to face discussion lasted for a duration of _35__ minutes. Not available 06/15/2025 16:06:25 Reason for Referral Neurologist Referral for Poo r short-term memory pending lab will be forwarded Referring Physician: Jose Gibson, Internal Medicine, Encounter Date: 06/15/2025 Results Created Date Observation Date Name Description Value Unit Range Abnormal Flag Note LastModifiedBy Organization Detail LastModifiedTime 06/15/2006/15/2025 pulse oxime try* Result 96 Not Available [facility] [address] [facility] [address], [place], [address], 06/01/2025 13:58:15 Result Notes None recorded. Problems Name Problem SNOMED Code Status Onset Date Resolution Date Notes Provider Name and Address Organization Details Recorded Time Tachycardi a 9725252 Active 2017 Not Available [facility] 3 13:33:26 Hypertensi ve disorder 77614367 Active 2017 Not Available [facility] 3 13:33:26 Impaired fasting glycemia 046106020 Active 2017 Not Available [facility] 3 13:33:26 Obstructiv e sleep apnea syndrome 14992020 Active 2017 TRU COLEMAN [address] [place], [address], [facility] 5 16:32:08 Hyperlipid emia 49283346 Active 2017 Not Available [facility] 3 13:33:26 Herpes simplex 60633634 Active 2018 HVS2 Not Available [facility] 3 13:33:26 Chronic obstructiv e pulmonary disease 64247222 Active 2019 Not Available [facility] 3 13:33:26 COVID-19 808672055 Active 2021 Not Available [facility] 3 13:33:26 Acute bronchitis 57129376 Active 2021 Not Available [facility] 3 13:33:25 Dyspnea on exertion 94694578 Active 2021 Not Available [facility] 3 13:33:26 Acute urinary tract infection 609562935 Active 2021 Not Available [facility] 3 13:33:26 Constipati on 27663522 Active 2021 Not Available [facility] 3 13:33:26 Cough 00243500 Active 2021 Not Available [facility] 3 13:33:26 Asthma 838148253 Active 2021 Not Available [facility] 3 13:33:26 Acute sinusitis 74132692 Active 2021 Not Available [facility] 3 13:33:26 Calcific coronary arterioscl erosis 20535441 Active 2023 Jose Gibson DO [address] [place], [address], [facility] 4 02:13:46 Atrial fibrillati on 24140973 Active 2023 TRU COLEMAN [address] [place] [address], [address], [facility] 4 11:05:12 Fatigue 94246017 Active 2023 Jose Gibson, DO [address] [place] [address], [address], [facility] 4 16:29:08 Chronic cough 16867600 Active 2023 Jose Le Arthur, DO [address] [place] [address], [address], [facility] 4 09:19:03 Aspiration pneumonia 534636878 Active 2024 Jose Le DO Arthur [address] [place] [address], [address], [facility] 5 16:37:20 Poor short-term memory 536920826 Active 2024 Jose Rey Gibson DO [address] [place] [address], [address], [facility] 5 16:03:49 Problem Notes None recorded. Procedures Surgical History Date Name Laterality Status Provider Name and Address Organization Details Recorded Time 7 Colonoscopy completed Katie Ramos [facility] 01/08/2019 08:13:25 Imaging Results [...] TAKE 1 TABLET BY MOUTH EVERY DAY 2024 active Not Available Not Available Not Avai lable codeine 10 mg-guaife nesin 100 mg/5 mL [...] Updated DateTime 5 175.26 cm 34.9 kg/m2 569873. 24 g 56 /min 97 % 110/62 mm[Hg] Maya Phelps [facility] 5 15:39:30 Social History Question Answer Notes LastModified by Organizat ion Details LastModified Time Tobacco Smoking Status Former Smoker Not Available [facility] 05/04/2020 03:36:23 What Was The Date Of Your Most Recent Tobacco Screening? 06/15/2025 [email or web address] Information not available 06/15/2025 How Many Years Have You Smoked Tobacco? 35 [id number] Information not available 05/04/2020 Sex: Male Functional Status Question Answer Note LastModified by Organization D etails LastModified Time Do you or have you ever used any other forms of tobacco or nicotine? No [email or web address] Information not available 01/30/2024 Mental Status None [...] 30 mcg/0.3 mL dose [facility] 10:49:05 COVID-19, mRNA, LNP-S, PF, 30 mcg/0.3 mL dose 1 [facility]21 10:49:13 COVID-19, mRNA, LNP-S, PF, 30 mcg/0.3 mL dose 1 completed Jeanne Magana [facility] 05/11/2021 10:49:21 influenza, unspecified formulation 3 completed Davida Mina [facility] 03/30/2023 08:38:22 Respiratory syncytial virus (RSV) MAB, unspecified 4 completed Gayatri Esteves [facility] 04/04/2024 08:48:21 influenza, unspecified formulation 4 completed Adam Gibson [facility] 06/29/2024 09:48:51 influenza, unspecified formulation 5 completed Jose Gibson DO [address] [place] [address], [address], [facility] 06/15/2025 15:54:13 Tdap 5 completed Jose Gibson DO [address] [place] [address], [address], [facility] 06/15/2025 15:54:54 Influenza, split virus, quadrivalent, preservative 9 completed Adam Gibson [facility] 04/06/2019 15:29:04 Influenza, split virus, quadrivalent, preservative 0 completed Jose Gibson DO [address] [facility], [place], [address], [facility] 03/29/2020 12:04:20 Past Encounters Encounter ID Performer Location Encounter Start Date Encounter Closed Date Diagnosis/Indication Diagnosis SNOMED-CT Code Diagnosis ICD10 Code Diagnosis IMO Codes Diagnosis Note [id number] Jose Gibson DO [facility] [address] [facility],[place] [address] 06/15/2025 15:33:31 06/15/2025 16:26:51 Screening for cardiovascular system disease 482252783 Z13.6 LDL 97 this year per cardiol Screening for malignant neoplasm of colon 508359091 Z12.11 Depression screening 171 270340 Z13.31 PHQ9 NEGATIVE Atrial fibrillation 4943 6004 I48.91 did great after the ablationdo ing good overall Hyperlipidemia 46903727 E78.5 next lab draw Asthma 267972663 J45.90 9 stable doing ok until now he will treat conserv Chronic ob structive pulmonary disease 30252863 J41.8 discussed use of meds like flovent Preventive procedure 169 813509 Z00.00 75670618 overall he is doing well and is not having any major issues Poor short -term memory 870494101 R41.3 573026 Health Concerns Section Related Observation LastModified by Organization Detai ls LastModified Time None Recorded Concern Status LastModified by Organization Details LastModified Time None Recorded Payers Encounter Date Sequence Insurance Name Policy Number Policy Denson Covered Member ID Denson Member ID Guarantor Name 06/15/2025 2 [place] [id number] Alexis Chacon [id number] Alexis Chacon 06/15/2025 1 [place] [employer] Alexis Chacon [id number] Alexis Chacon Notes Date Note Type [...] the HPI here for mwv relates Jose Gibson, DO [address] [facility], [place], [address], [facility] 06/15/2025 16:14:24
--- OUTSIDE RECORDS SUMMARY | 2025-06-30 12:07 | XMS_ITS | Data Portability ---
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 Lab TSH, serum or plasma 2024 [facility], [address] [place] [address], [address], 5 11:50:42 ESR (erythrocy te sedimentat ion rate), blood 2024 [facility], [address] [place] [address], [address], 5 16:10:29 vitamin B12 + folate, serum or blood 2024 [facility], [address] [place] [address], [address], 5 16:10:29 hemoglobin , gastrointe stinal, stool 2024 [facility], [address] [place] [address], [address], 5 16:10:28 CMP, serum or plasma 2023 024 [facility], [address] [place] [address], [address], 4 17:01:48 CBC 2023 [facility], [address] [place] [address], [address], 4 17:01:47 PSA, serum or plasma 2023 [facility], [address] [place] [address], [address], 4 17:01:47 lipid panel, serum 2023 024 [facility], [address] [place] [address], [place], [address], 4 17:01:48 Referral neurologis t referral - pending lab will be forwarded 2024 025 [email or web address] Baljinder Rehman MD, [address] [place] [address], [address], 16:26:51 pulmonolog ist referral - please note pt has had cough for 3months following an RSV vaccine he has undergone workup and various treatment without relief. wondering if the rsv had some type of reaction on him vs laryngeal reflux vs cough variant asthma?? he does have a distant hx of smoking and a PFT from 2021 showed mild copd. thank you for your time . 2023 024 [email or web address] Vargas MD, [address] [place] [address], [address], 5 09:35:01 Procedures None recorded. Surgeries None recorded. Imaging XR, chest, 2 view 2024 025 [facility], [address] [place], [address], 14:28:53 Medication Orders moxifloxac in 400 mg tablet 2024 025 [facility]armacy #2024, [address] [place], [address], 5 15:50:22 benzonatat e 200 mg capsule 2023 025 [email or web address] [facility]/Pharmacy #2024, [address] [place], [address], 5 15:49:00 atorvastat in 40 mg tablet 2023 025 [email or web address] [facility]Pharmacy #2024, [address] [place], [address], 5 15:20:41 metoprolol succinate ER 50 mg tablet,ext ended release 24 hr 2023 024 [facility], [address] [place], [address], 14:01:17 Patient TargetsNo targets recorded. Patient Instructions Encounter Date Encounter Id Patient Instructions Last Modified By Organization Details Last Modified Time 06/02/2024 [id number] pulse oximetry* Not available 06/02/2024 16:56:30 06/27/2024 [id number] chronic cough: care instructions Not available 06/27/2024 09:20:40 08/06/2024 [id number] prediabetes: car e instructions Not available 08/06/2024 16:41:10 pulse oximetry* Not available 08/06/2024 16:41:10 aspiration pneumonia: care instructions Not available 08/06/2024 16:41:10 atrial fibrillation: care instructions Not available 08/06/2024 16:41:10 chronic obstructive pulmonary disease (COPD): care instructions Not available 08/06/2024 16:41:09 learning about copd and how to prevent lung infections Not available 08/06/2024 16:41:10 02/09/2025 [id number] pulse oximetry* Not available 02/09/2025 16:15:37 06/15/2025 [id number] pulse oximetry* Not available 06/15/2025 16:06:14 advance care planning: care instructions Not available 06/15/2025 16:06:14 Discussed and explained advance directives such as standard forms to the patient. Face to face discussion lasted for a duration of _35__ minutes. 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 george Referring Physician: Jose Gibson, Internal Medicine, Encounter Date: 06/27/2024 Neurologist Referral for Poo r short-term memory pending lab will be forwarded Referring Physician: Jose Gibson, Internal Medicine, Encounter Date: 06/15/2025 Results Created Date Observation Date Name Description Value Unit Range Abnormal Flag Note LastModifiedBy Organization Detail LastModifiedTime 06/02/20 24 06/02/2024 pulse oxime try* Result 97% Not Available [facility] [address] [facility] [address], [place], [address], 05/28/2024 10:33:02 08/06/19 25 08/06/2024 pulse oxime try* Result 98% Not Available [facility] [address] [facility] [address], [place], [address], 08/05/2024 09:10:54 02/10/20 25 02/09/2025 pulse oxime try* Result 98 Not Available [facility] [address] [facility] [address], [place], [address], 01/27/2025 10:44:16 06/15/20 25 06/15/2025 pulse oxime try* Result 96 Not Available [facility] [address] [facility] [address], [place], [address], 06/01/2025 13:58:15 05/27/20 24 05/27/2024 XR, chest , 2 view No observ ation record ed. [email or web address] [address] [facility], [place], [address], 05/28/2024 06:50:06 08/18/19 25 08/18/2024 XR, chest , 2 view No observ ation record ed. [facility] [address] [facility] [address], [place], [address], 08/18/2024 21:24:36 Result Notes None recorded. Problems Name Problem SNOMED Code Status Onset Date Resolution Date Notes Provider Name and Address Organization Details Recorded Time Tachniecy a 0192073 Active 2017 Not Available [facility] 3 13:33:26 Hypertensi ve disorder 70607070 Active 2017 Not Available [facility] 3 13:33:26 Impaired fasting glycemia 828604618 Active 2017 Not Available [facility] 3 13:33:26 Obstructiv e sleep apnea syndrome 59711299 Active 2017 TRU COLEMAN [address] [place] [address], [address], [facility], [place] 5 16:32:08 Hyperlipid emia 94229572 Active 2017 Not Available [facility] 3 13:33:26 Herpes simplex 28539743 Active 2018 HVS2 Not Available [facility] 3 13:33:26 Chronic obstructiv e pulmonary disease 40501892 Active 2019 Not Available [facility] 3 13:33:26 COVID-19 318393254 Active 2021 Not Available [facility] 3 13:33:26 Acute bronchitis 81411551 Active 2021 Not Available [facility] 3 13:33:25 Dyspnea on exertion 72336991 Active 2021 Not Available [facility] 3 13:33:26 Acute urinary tract infection 661786544 Active 2021 Not Available [facility] 3 13:33:26 Constipati on 52862203 Active 2021 Not Available [facility] 3 13:33:26 Cough 92508571 Active 2021 Not Available [facility] 3 13:33:26 Asthma 259764990 Active 2021 Not Available [facility] 3 13:33:26 Acute sinusitis 97739235 Active 2021 Not Available [facility] 3 13:33:26 Calcific coronary arterioscl erosis 03690451 Active 2023 Jose Gibson DO [address] [place] [address], [address], [facility], [place] 4 02:13:46 Atrial fibrillati on 59870834 Active 2023 TRU COLEMAN [address] [place] [address], [address], [facility], [place] 4 11:05:12 Fatigue 13006803 Active 2023 Jose Gibson DO [address] [place] [address], [address], [facility] 4 16:29:08 Chronic cough 03971077 Active 2023 Jose Gibson DO [address] [place] [address], [address], [facility], [place] 4 09:19:03 Aspiration pneumonia 416876225 Active 2024 Jose Gibson DO [address] [place] [address], [address], [facility] 5 16:37:20 Poor short-term memory 430773878 Active 2024 Jose Gibson DO [address] [place] [address], [address], [facility], [place] 5 16:03:49 Problem Notes None recorded. Procedures Surgical History Date Name Laterality Status Provider Name and Address Organization Details Recorded Time 7 Colonoscopy completed Katie Ramos [facility] 01/08/2019 08:13:25 Imaging Results None recorded. Procedure [...] Not Available Not Avai lable codeine 10 mg-kandyfe nesin 100 mg/5 mL oral liquid TAKE [...] Updated DateTime 5 175.26 cm 34 kg/m2 017799. 25 g 82 /min 98 % 132/82 mm[Hg] Jose Gibson, DO [address] [place], [address] , [place] - [facility] 5 16:08:57 Date Recorded Body height Body mass index (BMI) Body weight Oxygen saturation Heart rate Systolic And Diastolic Provider Name and Address Organization Details Last Updated DateTime 5 175.26 cm 33.8 kg/m2 722603. 01 g 96 % 67 /min 134/76 mm[Hg] ANUJ ARRINGTON [place] - [facility] 5 15:55:13 Date Recorded Body height Body mass index (BMI) Body weight Heart rate Oxygen saturation Systolic And Diastolic Provider Name and Address Organization Details Last Updated DateTime 4 175.26 cm 33.7 kg/m2 911549. 06 g 86 /min 97 % 130/86 mm[Hg] Jose Del CidAngelica Gibson, DO [address] [facility], [place], [address], [facility] 4 16:34:35 Date Recorded Body height Body mass index (BMI) Body weight Heart rate Oxygen saturation Systolic And Diastolic Provider Name and Address Organization Details Last Updated DateTime 5 175.26 cm 34.9 kg/m2 891406. 24 g 56 /min 97 % 110/62 mm[Hg] Maya Ayalaer [facility] 5 15:39:30 Social History Question Answer Notes LastModified by Organizat ion Details LastModified Time Tobacco Smoking Status Former Smoker Not Available [facility] 05/04/2020 03:36:23 What Was The Date Of Your Most Recent Tobacco Screening? 06/15/2025 [email or web address] Information not available 06/15/2025 How Many Years Have You Smoked Tobacco? 35 [id number] Information not available 05/04/2020 Sex: Male Functional Status Question Answer Note LastModified by Organization D etails LastModified Time Do you or have you ever used any other forms of tobacco or nicotine? No [email or web address] Information not available 01/30/2024 Mental Status None [...] 30 mcg/0.3 mL dose 1 completed [facility]20[facility] 10:49:05 COVID-19, mRNA, LNP-S, PF, 30 mcg/0.3 mL dose 1 completed Jeanne jimenez [facility] 05/11/2021 10:49:13 COVID-19, mRNA, LNP-S, PF, 30 mcg/0.3 mL dose [address] [facility] 05/11/2021 10:49:21 influenza, unspecified formulation [address] [facility] 03/30/2023 08:38:22 Respiratory syncytial virus (RSV) MAB, unspecified [address] [facility] 04/04/2024 08:48:21 influenza, unspecified formulation [address] [facility] 06/29/2024 09:48:51 influenza, unspecified formulation 5 completed Jose Gibson DO [address] [place] [address], [address], [facility] 06/15/2025 15:54:13 Tdap 5 completed Jose Gibson DO [address] [place] [address], [address], [facility] 06/15/2025 15:54:54 Influenza, split virus, quadrivalent, preservative [address] [facility] 04/06/2019 15:29:04 Influenza, split virus, quadrivalent, preservative 0 completed Jose Gibson DO [address] [place] [address], [address], [facility] 03/29/2020 12:04:20 Past Encounters Encounter ID Performer Location Encounter Start Date Encounter Closed Date Diagnosis/Indication Diagnosis SNOMED-CT Code Diagnosis ICD10 Code Diagnosis IMO Codes Diagnosis Note [id number] Jose Gibson DO [facility] [address] [place] [address] 11/27/2017 10:29:40 11/27/2017 11:33:17 Hypertensive disorder 21366120 I10 good control Hyperlipidemia 20936782 E78.5 on simvastati n Allergic rhinitis 274797 04 J30.9 on claritin-d chronicall y, try taking zyrtec, xyzal, or leonardo given HTN would recommend d/c the sudafed consider flonase as well on a more consistent basis [id number] Jose Gibson [facility] [address] [facility], [place] [address] 01/07/2018 15:27:28 01/07/2018 15:58:52 Hyperlipidemia 95896810 E78.5 on simvastati n will check labs reinforced healthy diet/exerc ise Obstructiv e sleep apnea syndrome 10110619 G47.33 uses cpap nightly Impaired f asting glycemia 370405739 R73.01 will check bs and a1c reinforced healthy diet Hypertensive disorder 38 139661 I10 good control [id number] Jose Gibson [facility] [address] [facility], [place] [address] 07/10/2018 15:57:12 07/10/2018 17:50:21 Hyperlipidemia 39541093 E78.5 on simvastati n will check labs reinforced healthy diet/exerc ise Obstructiv e sleep apnea syndrome 89638527 G47.33 uses cpap nightly Impaired f asting glycemia 952520476 R73.01 will check bs and a1c reinforced healthy diet Hypertensive disorder 38 477818 I10 good control Screening procedure 2012 5006 Z13.9 Screening for malignant neoplasm of prostate 798398386 Z12.5 Body mass index 30+ - obesity 806629956 Z68.35 healthy diet and exercise struggles with motivation discussed exercise habits discussed eating habits [facility] [place] [facility] [place] [id number] Jose Gibson [facility] [address] [facility], [place] [address] 10/28/2018 10:39:58 10/28/2018 11:30:51 Hypertensive disorder 56643569 I10 stable and without issues tolerates the meds ok Impaired f asting glycemia 734557585 R73.01 will be obtaining lab next cycle Obstructiv e sleep apnea syndrome 41202544 G47.33 wears every night with good results Hyperlipidemia 31469708 E78.5 next lab draw [id number] Jose Gibson [facility] [address] [facility], [place] [address] 01/08/2019 15:31:40 01/08/2019 16:20:47 Adult health examination 028749610 Z00.00 Active or passive immunization 717687061 Z23 Hyperlipidemia 60446537 E78.5 on simvastati n with good control reinforced healthy diet/exerc ise Impaired f asting glycemia 861397452 R73.01 stable reinforced healthy diet Hypertensive disorder 38 477160 I10 good control Body mass index 30+ - obesity 677449639 Z68.35 healthy diet and exercise struggles with motivation discussed exercise habits discussed eating habits suggested areas of improvemen t [id number] September NAIMA Newman [facility] [address] [facility], [place] [address] 07/15/2019 15:45:00 07/15/2019 16:18:34 Hyperlipidemia 54290246 E78.5 on simvastati n will check labs reinforced healthy diet/exerc ise Obstructiv e sleep apnea syndrome 06205293 G47.33 uses cpap nightly with relief Impaired f asting glycemia 438068559 R73.01 will check bs and a1c praised for weight loss and healthy diet choices Hypertensive disorder 38 637301 I10 very well controlled will lower lisinopril from 30 mg to 20 mg per day Body mass index 30+ - obesity 643361382 Z68.35 healthy diet and exercise discussed exercise habits discussed eating habits suggested areas of improvemen t [id number] Jose Gibson DO [facility] [address] [facility] [address] [address] 01/16/2020 15:35:15 01/16/2020 16:20:46 Adult health examination 933482059 Z00.00 a few concerns today we discussed Chronic ob structive pulmonary disease 19265037 J44.9 was tested at work physical with a PFT said he had 63% FEV1 and pattern which suggested COPD start with fast acting inhaler Deviated nasal septum 12 9416729 J34.2 had surgery done in 1994, the patient reports that he is starting to feel like he did before surgery with nasal congestion and [id number] Jose Gibson [facility] [address] [facility],[place] [address] 06/15/2020 08:42:50 06/15/2020 11:38:19 Lesion of lung 697012899 R91.8 will follow up with lung CT since XR will not show as much Chronic ob structive pulmonary disease 71356544 J44.9 stable per patient given hx of COPD/smoki ng will need fu CT from his XR to better determine this cause or what the lesion is [id number] Jose Gibson DO [facility] [address] [facility],[place] [address] 07/07/2020 13:32:38 07/07/2020 16:14:15 Spider bite wound 950170513 T14.8XXS will start patient on doxy for 7 days do to risk of infection of the area Allergic r eaction to insect venom 941459914 T63.481S will start patient on steriod cream, not near the eye or widespread enough to require pred taper will monitor his progress [id number] Jose Gibson DO [facility] [address] [facility],[address] [employer] [place] [address] 09/14/2020 16:02:41 09/15/2020 08:56:52 Renal function tests outside reference range 507152180 R94.4 will repeat labs as the test was done in december will see if resolved or same or worsened fu with results in office Acute nont raumatic kidney injury 5598342393 82110 N17.9 given BW results, most suggestive of ETHEL will repeat labs to establish diagnosis Infection of lacrimal gland 413120594 H04.009 reports right eye infection, swelling of the right eye, possible lacrimal gland infection start on medication Impaired f asting glycemia 351897221 R73.01 fu with A1c check to see if that is what is causing it Fatigue 08739685 R53.83 will also check TSH, says he is tired [id number] Jose Gibson [facility] [address] [facility] [address] [address] 04/05/2021 11:42:48 04/06/2021 08:21:37 Chronic obstructive pulmonary disease 29939549 J41.8 stable per patient Acute exac erbation of chronic obstructive pulmonary disease 935393432 J44.1 acute exacerbati on probablene gative for COVID on sunday [id number] Jose Gibson [facility] [address] [place] [address],[place] [address] 05/18/2021 09:11:18 05/18/2021 15:38:06 Benign prostatic hyperplasia 665537586 N40.0 will have him do a PSA Urinary incontinence 165 851776 N39.46 not UTI, will fu with PSA to determine if it is BPH [id number] Jose Gibson [facility] [address] [facility] [address] [address] 02/17/2022 15:24:17 02/17/2022 16:12:24 Active or passive immunization 582423047 Z23 Will consider Tdap and Shingles Adult [facility] examination 516259953 Z00.00 overall he is doing well and is not having any major issues Chronic ob structive pulmonary disease 45505474 J41.8 we will need to get a PFT [id number] Jose Gibson [facility] [address] [facility] [address] [address] 03/08/2022 09:15:34 03/08/2022 11:22:42 Acute urinary tract infection 281370482 N10 will start on cipro and fu on sunday with an update Constipation 43428077 K5 9.09 will give me a call on sunday [id number] Jose Gibson [facility] [address] [facility] [address] [address] 12/03/2023 13:44:30 12/03/2023 14:34:50 Active or passive immunization 440021614 Z23 Will consider Tdap and Shingles Adult heal th examination 006076840 Z00.00 overall he is doing well and is not having any major issues Asthma 480591529 J45.90 9 Depression screening 171 567515 Z13.31 PHQ9 NEGATIVE Hypertensive disorder 38 410735 I10 stable and without issues tolerates the meds ok Chronic ob structive pulmonary disease 39919348 J41.8 discussed use of meds like flovent [id number] Jose Gibson [facility] [address] [facility] [address] [address] 01/30/2024 13:27:28 02/01/2024 11:16:53 Atrial fibrillation 78764686 I48.91 await echo and ETT will get him to cardiologi and start metoprolol as well as stop the lisinopril call if ANY issues and we will see him after test Hypertensive disorder 38 338170 I10 change to metop from lisinopril [id number] Jose Gibson [facility] [address] [facility] [address] [address] 03/31/2024 15:09:02 03/31/2024 16:12:28 Asthma 852327077 J45.909 stable doing ok until now he will treat conserv Chronic ob structive pulmonary disease 21828482 J41.8 discussed use of meds like flovent Calcific c oronary arteriosclerosis 51020963 I25.10 stable and doing well [id number] Jose Gibson [facility] [address] [facility] [address] [place] [employer] [place] [address] 06/02/2024 16:11:18 06/03/2024 14:26:15 Asthma 331471861 J45.909 stable doing ok until now he will treat conserv Atrial fibrillation 4943 6004 I48.91 await echo and ETT will get him to cardiologi st and start metoprolol as well as stop the lisinopril call if ANY issues and we will see him after testpulse is still irreg irrreg and in low 100's Calcific c oronary arteriosclerosis 29352649 I25.10 stable and doing well Hyperlipidemia 05822752 E78.5 next lab draw Hypertensive disorder 38 838438 I10 change to metop from lisinopril [id number] Jose Rey Gibson [facility] [address] [facility] [address] [address] 06/27/2024 09:01:54 06/27/2024 10:09:39 Hyperlipidemia 19081417 E78.5 next lab draw Chronic cough 30277780 R 05.3 [id number] Jose Rey Gibson [facility] [address] [facility] [address] [address] 08/06/2024 15:57:09 08/06/2024 16:48:54 Asthma 703458135 J45.909 stable doing ok until now he will treat conserv Atrial fibrillation 4943 6004 I48.91 await echo and ETT will get him to cardiologi and start metoprolol as well as stop the lisinopril call if ANY issues and we will see him after testpulse is still irreg irrreg and in low 100's Calcific c oronary arteriosclerosis 33379286 I25.10 stable and doing wellwaitin g for cardio Chronic ob structive pulmonary disease 65334556 J41.8 discussed use of meds like flovent Hypertensive disorder 38 324621 I10 change to metop from lisinopril Impaired f asting glycemia 039441697 R73.01 will be obtaining lab next cycle Aspiration pneumonia 422 029402 J69.0 will need tx also will need f/u cxr [id number] Jose Gibson [facility] [address] [facility] [address],[place] [address] 02/09/2025 15:42:34 02/09/2025 16:38:41 Depression screening 665144998 Z13.31 PHQ9 NEGATIVE Hypertensive disorder 38 806085 I10 change to amlodipine from metop from lisinopril Atrial fibrillation 4943 6004 I48.91 did great after the ablationdo ing good overall Asthma [id number] J45.90 9 stable doing ok until now he will treat conserv Chronic ob structive pulmonary disease 92902547 J41.8 discussed use of meds like flovent [id number] Jose Gibson DO [facility] [address],[place] [address] 06/15/2025 15:33:31 06/15/2025 16:26:51 Screening for cardiovascular system disease [id number] Z13.6 LDL 97 this year per cardiol Screening for malignant neoplasm of colon 915526945 Z12.11 Depression screening 171 082434 Z13.31 PHQ9 NEGATIVE Atrial fibrillation 4943 6004 I48.91 did great after the ablationdo ing good overall Hyperlipidemia 10143644 E78.5 next lab draw Asthma [id number] J45.90 9 stable doing ok until now he will treat conserv Chronic ob structive pulmonary disease 96366250 J41.8 discussed use of meds like flovent Preventive procedure 169 442280 Z00.00 [id number] overall he is doing well and is not having any major issues Poor short -term memory 189364290 R41.3 [id number] Health Concerns Section Related Observation LastModified by Organization Detai ls LastModified Time None Recorded Concern Status LastModified by Organization Details LastModified Time None Recorded Advance Directives Directive None Recorded Payers Insurance Date Sequence Insurance Name Policy Number Policy Denson Covered Member ID Denson Member ID Guarantor Name 02/15/2022 1 [place]: [facility] [id number] Isa Dominguez [id number] Alexis Chacon 06/26/2024 2 [place] [employer] Alexis Chacon [id number] Alexis Chacon 06/26/2024 1 [facility] [id number] Alexis Chacon [id number] Alexis Chacon 11/28/2024 1 [facility] [id number] Alexis Chacon [id number] Alexis Chacon 06/26/2024 1 [employer] Alexis Chacon [id number] Alexis Chacno 06/26/2024 2 [place] [employer] Alexis Chacon [id number] Alexis Chacon 06/12/2025 2 [place] [id number] Alexis Chacon [id number] Alexis Chacon 06/12/2025 1 MEDICARE [place]: [facility] Alexis Chacon [id number] Alexis Chacon Notes Date Note Type Note [...] is in 100s he is only on [id number] Jose Gibson DO [address] [place] [address], [phone], [facility] [place] 06/02/2024 16:57:01 024 text/ht ml ROS as noted in the HPI patient is evaluated via tele/video assessment per patient consent during current pandemic long discussion re cough persisting Jose Gibson DO [address] [place] [address], [phone], [facility] [place] 06/27/2024 09:35:24 025 text/ht ml [...] was colored a couple dyas ago Jose NehemiasAngelica Gibson DO [address] [facility], [place], [address], [facility], [place] 08/06/2024 16:42:49 025 text/ht ml [...] since ablationdoing well no major issues Jose Gibson DO [address] [facility], [place], [address], [facility], [place] 02/09/2025 16:18:54 025 text/ht ml [...] for mwv relates Jose Gibson, DO [address] [facility], [place], [address], [facility], [place] 06/15/2025 16:14:24
--- OUTSIDE RECORDS SUMMARY | 2025-06-30 12:07 | XMS_ITS | Encounter Summary ---
Author Organization [facility] Address [address] [place] [address] Phone Care Team Providers Care Draw Bench Operator Name Role Phone Jose Gibson Primary Care Provider [phone] Encounter Details Date Type Department Care Team (Late st Contact Info) Description 07/31/2022 Procedure Pass [facility] Endoscopy Admitting Dept Virtual Department [address] [place] [address] Social History Tobacco Use Types Packs/Day Years [...] on filedocumented in this encounter Care Teams Draw Bench Operator Relationship Specialty Start Date End Date Jose Gibson DO [email or web address] PCP - General Internal Medicine 05/21/17 documented as of this encounter Additional Source Comments The information contained in this document represents components of the legal health record. It is not the complete legal health record.[facility]
--- OUTSIDE RECORDS SUMMARY | 2025-06-30 12:07 | XMS_ITS | Encounter Summary ---
Author Organization [facility] Address [address] [place] [address] Phone Care Team Providers Care Sole Leveling Machine Operator Name Role Phone Jose Gibson DO Primary Care Provider [phone] Jose Gibson DO Unavailable Encounter Details Date Type Department Care Team (Late st Contact Info) Description 05/28/2017 Procedure Pass [facility] Endoscopy Admitting Dept Virtual Department [address] [place] [address] Social History Tobacco Use Types Packs/Day Years [...] on filedocumented in this encounter Care Teams Sole Leveling Machine Operator Relationship Specialty Start Date End Date Jose Gibson DO PCP - General Internal Medicine 05/21/17 Jose Gibson DO [address] [place] [address] [email or web address] Insurance Assigned Provider 07/10/20 10/08/21 documented as of this encounter Additional Source Comments The information contained in this document represents components of the legal health record. It is not the complete legal health record.[facility]
--- OUTSIDE RECORDS SUMMARY | 2025-06-30 12:07 | XMS_ITS | Clinical Summary ---
Author Organization [facility] Address [address] [place] [address] Phone Care Team Providers Care Pleating Machine Operator Name Role Phone Marli Carranza Primary Care Provider [phone] Allergies Active Allergy Reactions Criticality Noted Date [...] Curry MD - 07/31/2022 7:42 AM EST [facility] Patient Name: Alexis Guerradianelys Attending MD:: CHUCKIE CURRY MD Procedure Date: 07/31/2022 7:42 AM Date of : 1960 Age: 62 Admit Type: Outpatient Gender: Male Room: [place] [address] Referring MD: MARLI CARRANZA DO Exam Type: [...] monitored continuously. The Olympus adult variable colonoscope [id number] #5 was introduced through the anus and [...] 7:42 AM Procedure Code(s): --- Professional --- 62765, Colonoscopy, flexible; with removal of tumor(s), polyp(s), or other lesion(s) by snare technique --- Technical --- 79049, Colonoscopy, flexible; with removal of tumor(s), polyp(s), or other lesion(s) by snare technique Diagnosis Code(s): --- Professional --- Z86.010, Personal history of colonic polyps K63.5, Polyp of colon --- Technical --- Z86.010, Personal history of colonic polyps K63.5, Polyp of colon CPT copyright 2020 [employer]. All rights reserved. The codes documented in this report are preliminary and upon emergency medicine physician assistant reviewmay be revised to meet current compliance requirements. Procedure Date: 07/31/2022 7:42:[address] [place] [address] [place] Marli A Jayeda DO GI PROCEDURE ORDERABLES Final Re sult * (ABNORMAL) Comprehensive metabolic panel (01/03/2019 7:42 AM EDT) SODIUM 142 133 - 146 mmol/L [facility] POTASSIUM 4.7 3.3 - 5.1 mmol/L [facility] CHLORIDE 100 96 - 108 mmol/L [facility] CO2 27 21 - 35 mmol/L [facility] BUN 23(H) 6 - 19 mg/dL [facility] CREATININE 1.40 0.5 - 1.5 mg/dL [facility] GLUCOSE 99 70 - 99 mg/dL [facility] ALBUMIN 4.4 3.9 - 4.8 g/dL [facility] TOTAL PROTEIN 7.1 6.5 - 8.0 g/dL [facility] CALCIUM 9.3 8.4 - 10.3 mg/dL [facility] ALKALINE PHOSPHATASE 119(H) 39 - 117 U/L [facility] TOTAL BILIRUBIN 0.6 0.0 - 1.2 mg/dL [facility] AST 30 0 - 37 U/L [facility] ALT 36 0 - 40 U/L [facility] GLOBULIN 2.7 1 - 4.8 g/dL [facility] EGFR 54(L) >59 mL/min/1.7 3m2 [facility] Comment:If patient is black, multiply result by 1.159. Estimated glomerular filtration rate calculated using the CKD-EPI equation. ANION GAP 20 10 - 20 mmol/L [facility] Blood 01/03/2019 7:42 AM EDT 01/03/2019 7:49 AM EDT [facility] PA- LAB BLOOD BKR ORDERABLES Fin al Result Performing Organization Address City/[facility]/ZIP Co de Phone Number [address] [address] * Hepatitis C antibody, qualitative (01/03/2019 7:42 AM EDT) HCV Negative Negative [facility] Comment: This is a screening test and should be confirmed with molecular testing Blood 01/03/2019 7:42 AM EDT 01/03/2019 7:49 AM EDT [facility] LAB BLOOD BKR ORDERABLES Fin al Result Performing Organization Address [facility] Co de Phone Number [address] [address] * Lipid panel (01/03/2019 7:42 AM EDT) HDL 33 mg/dL [facility] Comment: Interpretation <40 mg/dL: Low HDL cholesterol (major risk factor for CHD) Greater than or equal to 60 mg/dL: High HDL cholesterol ( negative risk factor for CHD) HDL - cholesterol is affected by a number of factors, e.g. smoking, excerise, hormones, sex and age. CHOLESTEROL 154 0 - 240 mg/dL [facility] TRIGLYCERIDES 102 30 - 160 mg/dL [facility] LDL 101 50 - 129 mg/dL [facility] Comment: LDL levels in terms of risk for coronary heart disease: <100 mg/dL: Optimal 100-129 mg/dL: Near or above optimal 130-159 mg/dL: Borderline high 160-189 mg/dL: High >190 mg/dL: Very High CARDIAC RISK RATIO 4.7 3.4 - 5.0 [facility] Blood 01/03/2019 7:42 AM EDT 01/03/2019 7:49 AM EDT September Paty [facility] LAB BLOOD BKR ORDERABLES Merritt al Result [address] [address] from Last 3 Months or Most Recently Relevant to Health Maintenance Insurance [place] [id number] [employer] MEDEX SUPPLEMENT MEDICARE PART A & B [employer] MEDEX SUPPLEMENT MEDICARE PART A & B Member Subscriber Plan / Payer ( fective 2024-) Name:Alexis Chacon Member ID:[id number] Relation to Subscriber:Self Name:Alexis Chacon Subscriber ID:[id number] Payer ID:[id number] Group ID:Not on file Type:Medicare Address: [facility] [employer] [facility] [employer] [facility] [address] [place] [phone] [employer] CROSS MEDEX SUPPLEMENT MEDICARE PART A & B [employer] MEDEX SUPPLEMENT MEDICARE PART A & B [employer] MEDEX SUPPLEMENT MEDICARE PART A & B [employer] MEDEX SUPPLEMENT Care Teams Pleating Machine Operator Relationship Specialty Start Date End Date Marli Carranza DO [phone] (work) [email or web address] PCP - General Internal Medicine 05/21/17 Additional Source Comments The information contained in this document represents components of the legal health record. It is not the complete legal health record.[facility]
--- OUTSIDE RECORDS SUMMARY | 2025-06-30 12:07 | XMS_ITS | Encounter Summary ---
Author Organization [facility] Address [address] [place] [address] Phone Care Team Providers Care Dry Cell Sealer Name Role Phone Jose Gibson DO Primary Care Provider [phone] JayeJose jules DO Unavailable Encounter Details Date Type Department Care Team (Latest Contact Info) Description 01/03/2019 Transcribe Orders [facility] Phleb [address] [address] Miracle Newman, PADMINI [address] [place] [address] [email or web address] Hyperlipidemia, unspecified hyperlipidemia type (Primary Dx) [...] EDT) PSA 0.48 0 - 4.00 ng/mL [facility] Blood 01/03/2019 7:42 AM EDT 01/03/2019 7:49 AM EDT [facility] PA- LAB BLOOD BKR ORDERABLES Fin al Result Performing Organization Address [facility] Co de Phone Number [address] [address] * Hepatitis C antibody, qualitative (01/03/2019 7:42 AM EDT) HCV Negative Negative [facility] Comment: This is a screening test and should be confirmed with molecular testing Blood 01/03/2019 7:42 AM EDT 01/03/2019 7:49 AM EDT [facility] LAB BLOOD BKR ORDERABLES Fin al Result Performing Organization Address [facility] de Phone Number [address] [address] * Hemoglobin A1c (01/03/2019 7:42 AM EDT) HEMOGLOBIN A1C 5.7 4.3 - 5.8 % [facility] Blood 01/03/2019 7:42 AM EDT 01/03/2019 7:49 AM EDT [facility] LAB BLOOD BKR ORDERABLES Fin al Result Performing Organization Address [facility] de Phone Number [address] [address] * Lipid panel (01/03/2019 7:42 AM EDT) HDL 33 mg/dL [facility] Comment: Interpretation <40 mg/dL: Low HDL cholesterol (major risk factor for CHD) Greater than or equal to 60 mg/dL: High HDL cholesterol ( negative risk factor for CHD) HDL - cholesterol is affected by a number of factors, e.g. smoking, excerise, hormones, sex and age. CHOLESTEROL 154 0 - 240 mg/dL [facility] TRIGLYCERIDES 102 30 - 160 mg/dL [facility] LDL 101 50 - 129 mg/dL [facility] Comment: LDL levels in terms of risk for coronary heart disease: <100 mg/dL: Optimal 100-129 mg/dL: Near or above optimal 130-159 mg/dL: Borderline high 160-189 mg/dL: High >190 mg/dL: Very High CARDIAC RISK RATIO 4.7 3.4 - 5.0 [facility] Blood 01/03/2019 7:42 AM EDT 01/03/2019 7:49 AM EDT us September Paty [facility] LAB BLOOD BKR ORDERABLES Fin al Result [facility] [address] [place] [address] * (ABNORMAL) Comprehensive metabolic panel (01/03/2019 7:42 AM EDT) SODIUM 142 133 - 146 mmol/L [facility] POTASSIUM 4.7 3.3 - 5.1 mmol/L [facility] CHLORIDE 100 96 - 108 mmol/L [facility] CO2 27 21 - 35 mmol/L [facility] BUN 23(H) 6 - 19 mg/dL [facility] CREATININE 1.40 0.5 - 1.5 mg/dL [facility] GLUCOSE 99 70 - 99 mg/dL [facility] ALBUMIN 4.4 3.9 - 4.8 g/dL [facility] TOTAL PROTEIN 7.1 6.5 - 8.0 g/dL [facility] CALCIUM 9.3 8.4 - 10.3 mg/dL [facility] ALKALINE PHOSPHATASE 119(H) 39 - 117 U/L [facility] TOTAL BILIRUBIN 0.6 0.0 - 1.2 mg/dL [facility] AST 30 0 - 37 U/L [facility] ALT 36 0 - 40 U/L [facility] GLOBULIN 2.7 1 - 4.8 g/dL [facility] EGFR 54(L) >59 mL/min/1.7 3m2 [facility] Comment:If patient is black, multiply result by 1.159. Estimated glomerular filtration rate calculated using the CKD-EPI equation. ANION GAP 20 10 - 20 mmol/L [facility] Blood 01/03/2019 7:42 AM EDT 01/03/2019 7:49 AM EDT September Paty [facility] LAB BLOOD BKR ORDERABLES Fin al Result [facility] [address] [place] [address] documented in this encounter Visit Diagnoses Diagnosis Hyperlipidemia, unspecified hyperlipidemia type- Primary documented in this encounter Care Teams Dry Cell Sealer Relationship Specialty Start Date End Date Jose Gibson DO PCP - General Internal Medicine 05/21/17 Jose Gibson DO [address] [place] [address] Insurance Assigned Provider 07/10/20 10/08/21 documented as of this encounter Additional Source Comments The information contained in this document represents components of the legal health record. It is not the complete legal health record.[facility]
== END 2025-06-23 09:28 ==
LOC: HO.MANLNP 09:27
PROVIDERS: Visit Provider Internal Medicine
DX: Z12.11 Encounter for screening for malignant neoplasm of colon (principal)
CPT/HCPCS: 82274